=== PATIENT | female | born 1955 | race African-American/Black ===

== ENCOUNTER 2017-08-22 15:51 | Inpatient (IN) ==
[2017-08-22 17:36] LABS: Basophils % 0.2 % (0.0-0.8); Eosinophils % 0.7 % (0.00-10.9); Hematocrit 32.7 VOL% (35.7-47.0); Hemoglobin 10.9 GM/DL (12.0-16.0); Immature Granulocytes % 0.5 %; Immature Granulocytes Absolute 0.02 #; Lymphocytes # 0.8 10*3/uL (1.4-4.0); Mean Corpuscular HGB Conc 33.3 GM/DL (32-36); Mean Corpuscular Hemoglobin 28 PG (27-34); Mean Corpuscular Volume 82.4 FL (87-102); Mean Platelet Volume 12.2 FL (9.6-12.0); Monocytes # 0.4 10*3/uL (0.11-0.8); Neutrophils # 3.2 10*3/uL (1.4-7.4); Neutrophils % 72.6 % (38.7-73.9); Red Blood Count 3.97 MC/CUMM (3.8-5.5); Red Cell Distribution Width 15.9 % (9.3-17.3); White Blood Count 4.4 T/CUMM (4-12)
[2017-08-22 17:46] LABS: Platelet Count 66 T/CUMM (130-400)
[2017-08-22 17:49] LABS: Bilirubin,Total 0.5 MG/DL (0.2-1.0); Osmolality,Calculated 287.1 MOS/KG (273-304); Potassium 3.9 MMOL/L (3.5-5.1); Total Protein 6.6 G/DL (6.4-8.3)
[2017-08-22 17:50] LABS: Lactic Acid 1.1 MMOL/L (0.4-2.0)
[2017-08-22 18:52] LABS: Apearance,Urine CLEAR (Clear); Bilirubin,Urine Negative (Negative); Blood, Urine Negative (Negative); Glucose,Urine (UA) Negative (Negative); Ketones,Urine Negative (Negative); Mucus,Urine Occasional /LPF (Occasional); Nitrite,Urine Negative (Negative); Protein,Urine 100 MG/DL; RBC,Urine 1 /HPF (0-4); Squamous Epithelial Cell,Urine Occasional /HPF (0-10); Urine Color Yellow (Yellow); Urine Specific Gravity 1.011 (1.001-1.035); Urine Urobilinogen < 2.0 EU/DL (0.2-1.0); WBC,Urine 2 /HPF (0-6)
[2017-08-24 05:44] LABS: Calcium 7.8 MG/DL (8.5-10.1); Osmolality,Calculated 280.5 MOS/KG (273-304)
[2017-08-24 06:31] LABS: Basophils % 0.2 % (0.0-0.8); Hematocrit 30.8 VOL% (35.7-47.0); Hemoglobin 10.5 GM/DL (12.0-16.0); Immature Granulocytes % 0.7 %; Immature Granulocytes Absolute 0.03 #; Lymphocytes # 0.9 10*3/uL (1.4-4.0); Lymphocytes % 21.7 % (21.3-54.2); Mean Corpuscular HGB Conc 34.1 GM/DL (32-36); Mean Corpuscular Hemoglobin 28 PG (27-34); Mean Corpuscular Volume 81.9 FL (87-102); Mean Platelet Volume 12.2 FL (9.6-12.0); Monocytes # 0.4 10*3/uL (0.11-0.8); Neutrophils # 2.9 10*3/uL (1.4-7.4); Neutrophils % 68.4 % (38.7-73.9); Red Blood Count 3.76 MC/CUMM (3.8-5.5); Red Cell Distribution Width 16.3 % (9.3-17.3); White Blood Count 4.2 T/CUMM (4-12)
[2017-08-24 06:47] LABS: Platelet Count 51 T/CUMM (130-400)
[2017-08-24 07:12] LABS: Band Neutrophils 55 % (0-10); Lymphocytes 24 % (20-55); Metamyelocytes 2 %; Platelet Estimate Decreased; Segmented Neutrophils 12 % (50-85); Total Cells Counted 100
[2017-08-24 07:13] LABS: Anisocytosis Slight
[2017-08-25 09:30] LABS: Troponin I Only < 0.015 NG/ML (0.00-0.045)
[2017-08-25 09:32] LABS: Basophils % 0.5 % (0.0-0.8); Eosinophils % 0.2 % (0.00-10.9); Hematocrit 33.5 VOL% (35.7-47.0); Hemoglobin 10.9 GM/DL (12.0-16.0); Immature Granulocytes % 1.1 %; Immature Granulocytes Absolute 0.05 #; Lymphocytes # 1.4 10*3/uL (1.4-4.0); Lymphocytes % 31.3 % (21.3-54.2); Mean Corpuscular HGB Conc 32.5 GM/DL (32-36); Mean Corpuscular Hemoglobin 27 PG (27-34); Mean Corpuscular Volume 82.7 FL (87-102); Mean Platelet Volume 11.6 FL (9.6-12.0); Monocytes # 0.5 10*3/uL (0.11-0.8); Monocytes % 10.3 % (1.7-12.7); Neutrophils # 2.5 10*3/uL (1.4-7.4); Neutrophils % 56.6 % (38.7-73.9); Platelet Count 45 T/CUMM (130-400); Red Blood Count 4.05 MC/CUMM (3.8-5.5); Red Cell Distribution Width 15.9 % (9.3-17.3); White Blood Count 4.4 T/CUMM (4-12)
[2017-08-25 09:45] LABS: Alanine Aminotransferase 45 U/L (13-56); Albumin 2.7 G/DL (3.4-5.0); Alkaline Phosphatase 43 U/L (45-117); Aspartate Amino Transferase 36 U/L (0-37); Bilirubin,Total < 0.39 MG/DL (0.2-1.0); Blood Urea Nitrogen 23 MG/DL (7-18); Calcium 8.1 MG/DL (8.5-10.1); Glucose 122 MG/DL (74-106); Osmolality,Calculated 281.5 MOS/KG (273-304); Potassium 3.8 MMOL/L (3.5-5.1); Sodium 139 MMOL/L (136-145); Total Protein 6.3 G/DL (6.4-8.3)
[2017-08-25 10:15] LABS: Band Neutrophils 42 % (0-10); Lymphocytes 28 % (20-55); Metamyelocytes 2 %; Platelet Estimate Decreased; Segmented Neutrophils 18 % (50-85); Total Cells Counted 100
[2017-08-25 14:17] LABS: Apearance,Urine CLEAR (Clear); Bilirubin,Urine Negative (Negative); Blood, Urine Small mg/dL (Negative); Glucose,Urine (UA) Negative (Negative); Ketones,Urine Negative (Negative); Nitrite,Urine Negative (Negative); Protein,Urine 100 MG/DL; RBC,Urine 1 /HPF (0-4); Squamous Epithelial Cell,Urine Occasional /HPF (0-10); Urine Color Straw (Yellow); Urine Specific Gravity 1.008 (1.001-1.035); Urine Urobilinogen < 2.0 EU/DL (0.2-1.0); WBC,Urine 4 /HPF (0-6)
[2017-08-26 05:32] LABS: Basophils % 0.3 % (0.0-0.8); Eosinophils # 0.1 10*3/uL (0.0-0.87); Eosinophils % 2.5 % (0.00-10.9); Immature Granulocytes % 1.6 %; Immature Granulocytes Absolute 0.06 #; Lymphocytes # 1.4 10*3/uL (1.4-4.0); Lymphocytes % 38.5 % (21.3-54.2); Mean Corpuscular HGB Conc 33.3 GM/DL (32-36); Mean Corpuscular Hemoglobin 27 PG (27-34); Mean Corpuscular Volume 81.5 FL (87-102); Mean Platelet Volume 11.8 FL (9.6-12.0); Monocytes # 0.5 10*3/uL (0.11-0.8); Monocytes % 14.3 % (1.7-12.7); Neutrophils # 1.6 10*3/uL (1.4-7.4); Neutrophils % 42.8 % (38.7-73.9); Platelet Count 51 T/CUMM (130-400); Red Blood Count 3.68 MC/CUMM (3.8-5.5); Red Cell Distribution Width 15.8 % (9.3-17.3); White Blood Count 3.6 T/CUMM (4-12)
[2017-08-26 05:53] LABS: Platelet Estimate Decreased
[2017-08-26 06:36] LABS: Calcium 8.2 MG/DL (8.5-10.1); Osmolality,Calculated 277.7 MOS/KG (273-304)
[2017-08-27 06:31] LABS: Basophils % 0.8 % (0.0-0.8); Eosinophils # 0.1 10*3/uL (0.0-0.87); Hematocrit 32.3 VOL% (35.7-47.0); Hemoglobin 10.7 GM/DL (12.0-16.0); Immature Granulocytes % 2.5 %; Lymphocytes # 1.7 10*3/uL (1.4-4.0); Lymphocytes % 43.9 % (21.3-54.2); Mean Corpuscular HGB Conc 33.1 GM/DL (32-36); Mean Corpuscular Hemoglobin 27 PG (27-34); Mean Corpuscular Volume 81.8 FL (87-102); Mean Platelet Volume 11.3 FL (9.6-12.0); Monocytes # 0.5 10*3/uL (0.11-0.8); Monocytes % 12.1 % (1.7-12.7); Neutrophils # 1.5 10*3/uL (1.4-7.4); Neutrophils % 37.7 % (38.7-73.9); Platelet Count 67 T/CUMM (130-400); Red Blood Count 3.95 MC/CUMM (3.8-5.5); Red Cell Distribution Width 15.8 % (9.3-17.3)
[2017-08-27 07:01] LABS: Band Neutrophils 1 % (0-10); Eosinophils 9 % (0-10); Hypochromasia 1+; Lymphocytes 44 % (20-55); Ovalocytes Slight; Platelet Estimate Decreased; Segmented Neutrophils 40 % (50-85); Total Cells Counted 100
[2017-08-27 07:17] LABS: Calcium 9.1 MG/DL (8.5-10.1); Osmolality,Calculated 284.1 MOS/KG (273-304)
[2017-08-27 11:31] VITALS: BP 140/94
== END 2017-08-27 12:57 | disposition home health service (06) | DRG 194 ==
LOC: EDBD → EDUNIT# → N.ED 15:51 → SUATTDRO 21:06 → N.EDINP 21:06 → N.2E 22:08
PROVIDERS: ADMIT Internal Medicine Infectious Disease; ATTEND Internal Medicine

== ENCOUNTER 2019-12-01 05:52 | Inpatient (IN) ==
[2019-11-25 12:20] LABS: Bilirubin,Urine Negative (Negative); Blood, Urine Negative (Negative); Glucose,Urine (UA) Negative (Negative); Ketones,Urine Negative (Negative); Nitrite,Urine Negative (Negative); Protein,Urine 100 MG/DL; RBC,Urine 2 /HPF (0-4); Squamous Epithelial Cell,Urine Few /HPF (0-10); Urine Appearance Slightly Hazy (Clear); Urine Color Yellow (Yellow); Urine Specific Gravity 1.014 (1.001-1.035); Urine Urobilinogen < 2.0 EU/DL (0.2-1.0); WBC,Urine 5 /HPF (0-6)
[2019-11-25 12:21] LABS: Basophils % 0.8 % (0.0-0.8); Eosinophils # 0.3 10*3/uL (0.0-0.87); Eosinophils % 8.4 % (0.00-10.9); Hematocrit 27.2 VOL% (35.7-47.0); Hemoglobin 8.1 GM/DL (12.0-16.0); Immature Granulocytes % 0.5 %; Immature Granulocytes Absolute 0.02 #; Lymphocytes # 1.5 10*3/uL (1.4-4.0); Lymphocytes % 39.2 % (21.3-54.2); Mean Corpuscular HGB Conc 29.8 GM/DL (32-36); Mean Corpuscular Volume 78.2 FL (87-102); Monocytes % 9.9 % (1.7-12.7); Neutrophils % 41.2 % (38.7-73.9); Platelet Count 84 T/CUMM (130-400); Red Blood Count 3.48 MC/CUMM (3.8-5.5); Red Cell Distribution Width 22.3 % (9.3-17.3); White Blood Count 3.9 T/CUMM (4-12)
[2019-11-25 12:35] LABS: PT Patient Result 10.3 SECS (9.8-11.9); Partial Thromboplastin Time 25.7 SECS (23.9-33.8)
[2019-11-25 12:38] LABS: Albumin 3.2 G/DL (3.4-5.0); Bilirubin,Total 0.4 MG/DL (0.2-1.0); Calcium 9.8 MG/DL (8.5-10.1); Osmolality,Calculated 297.6 MOS/KG (273-304); Total Protein 6.7 G/DL (6.4-8.3)
[2019-11-25 12:43] LABS: Anisocytosis 1+; Hypochromasia 1+; Platelet Estimate Decreased; Poikilocytosis 1+
[2019-11-25 12:44] LABS: Ovalocytes Few; Tear Drop Cells Few
[2019-12-01] MEDS ORDERED: VANCOMYCIN INJ 1,000 MG in SODIUM CHLORIDE 0.9% 250 ML IV ONE (06:00)
[2019-12-01] MEDS ORDERED: BUPIVACAINE MPF 0.25% 30 ML VIAL ONE (06:16)
[2019-12-01] MEDS ORDERED: ACETAMINOPHEN 500 MG TABLET PO ONE (06:24)
[2019-12-01] MEDS ORDERED: GABAPENTIN 400 MG CAPSULE PO ONE (06:24)
[2019-12-01] MEDS ORDERED: DIAZEPAM 5 MG TABLET PO ONE (06:24)
[2019-12-01] MEDS ORDERED: FAMOTIDINE 20 MG TABLET PO ONE (06:24)
[2019-12-01] MEDS ORDERED: LACTATED RINGERS 1,000 ML IV SCH (06:30)
[2019-12-01] MEDS ORDERED: BACITRACIN OINT 0.9 GM PACK TOP ONE (06:40)
[2019-12-01] MEDS ORDERED: ceFAZolin 1,000 MG in SYRINGE 1 EACH IV ONE (07:00)
[2019-12-01] MEDS ORDERED: cloNIDine 0.1 MG TABLET PO PRN (07:44)
[2019-12-01] MEDS ORDERED: ALBUTEROL 2.5 MG/3 ML NEB RESP TX PRN (07:44)
[2019-12-01] MEDS ORDERED: LACTULOSE 20 GM/30 ML UDCUP PO PRN (07:44)
[2019-12-01] MEDS ORDERED: COLCHICINE 0.6 MG CAPSULE PO PRN (07:44)
[2019-12-01] MEDS ORDERED: tiZANidine 4 MG TABLET PO PRN (07:44)
[2019-12-01] MEDS ORDERED: CETIRIZINE 10 MG TABLET PO PRN (07:44)
[2019-12-01] MEDS ORDERED: MAGNESIUM HYDROXIDE SUSP 30 ML UDCUP PO PRN (07:47)
[2019-12-01] MEDS ORDERED: ZALEPLON 5 MG CAPSULE PO PRN (07:47)
[2019-12-01] MEDS ORDERED: HYDROmorphone 2 MG/1 ML VIAL IV PRN ×2 (07:47)
[2019-12-01] MEDS ORDERED: ONDANSETRON 4 MG/2 ML VIAL IV PRN ×2 (07:47→09:30)
[2019-12-01 09:25] LABS: Bacteria,Urine Occasional /HPF (Few); Bilirubin,Urine Negative (Negative); Blood, Urine Small mg/dL (Negative); Glucose,Urine (UA) Negative (Negative); Ketones,Urine Negative (Negative); Mucus,Urine Occasional /LPF (Occasional); Nitrite,Urine Negative (Negative); Protein,Urine 100 MG/DL; RBC,Urine 2 /HPF (0-4); Squamous Epithelial Cell,Urine Occasional /HPF (0-10); Urine Appearance CLEAR (Clear); Urine Color Yellow (Yellow); Urine Specific Gravity 1.013 (1.001-1.035); Urine Urobilinogen < 2.0 EU/DL (0.2-1.0); WBC,Urine 3 /HPF (0-6)
[2019-12-01] MEDS ORDERED: MEPERIDINE 25 MG/1 ML VIAL IV PRN (09:30)
[2019-12-01] MEDS ORDERED: diphenhydrAMINE 50 MG/1 ML VIAL IV PRN (09:30)
[2019-12-01] MEDS ORDERED: PROMETHAZINE INJ 25 MG in SODIUM CHLORIDE 0.9% 50 ML IV PRN (09:30)
[2019-12-01] MEDS: HYDROmorphone 2 MG/1 ML VIAL IV PRN ×4 (09:35→09:50)
[2019-12-01] MEDS ORDERED: propofoL 200 MG/20 ML VIAL IV ONE (09:39)
[2019-12-01] MEDS ORDERED: ROCURONIUM 100 MG/10 ML VIAL IV ONE (09:40)
[2019-12-01] MEDS ORDERED: GLYCOPYRROLATE 0.4 MG/2 ML VIAL ONE (09:40)
[2019-12-01] MEDS ORDERED: NEOSTIGMINE 10 MG/10 ML VIAL ONE (09:40)
[2019-12-01] MEDS ORDERED: SEVOFLURANE 1 UNIT/15 MINUTE INH ONE (09:40)
[2019-12-01] MEDS ORDERED: fentaNYL 100 MCG/2 ML VIAL ONE (09:40)
[2019-12-01] MEDS ORDERED: LIDOCAINE 2% 5 ML VIAL ONE (09:40)
[2019-12-01] MEDS ORDERED: SODIUM CHLORIDE 0.9% 100 ML IV ONE (09:40)
[2019-12-01] MEDS ORDERED: MIDAZOLAM 2 MG/2 ML VIAL ONE (09:40)
[2019-12-01] MEDS: LACTATED RINGERS 1,000 ML IV SCH ×3 (09:46→18:04)
[2019-12-01] MEDS: KETOROLAC 30 MG/1 ML VIAL IV SCH ×3 (10:01→19:50)
[2019-12-01] MEDS ORDERED: TRANEXAMIC ACID 1,000 MG/10 ML VIAL ONE (12:30)
[2019-12-01] MEDS: CHOLECALCIFEROL 1,000 UNIT TABLET PO SCH (12:50)
[2019-12-01] MEDS: ceFAZolin 2,000 MG in PREMIX 1 EACH IV SCH ×2 (12:50→19:48)
[2019-12-01] MEDS: POTASSIUM CHLORIDE 8 MEQ CAPSULE PO SCH ×2 (13:09→21:38)
[2019-12-01] MEDS: BRIMONIDINE 0.1% OPH SOLN 5 ML BOTTLE BOTH EYES SCH ×2 (13:09→21:39)
[2019-12-01] MEDS: FERROUS SULFATE 325 MG TABLET PO SCH (17:05)
[2019-12-01] MEDS ORDERED: NORTRIPTYLINE 10 MG CAPSULE PO SCH (21:00)
[2019-12-01] MEDS: DOCUSATE SODIUM 100 MG CAPSULE PO SCH (21:38)
[2019-12-01] MEDS: SIMVASTATIN 10 MG TABLET PO SCH (21:38)
[2019-12-02] MEDS: KETOROLAC 30 MG/1 ML VIAL IV SCH (01:44)
[2019-12-02] MEDS: LACTATED RINGERS 1,000 ML IV SCH ×3 (01:45→14:00)
[2019-12-02] MEDS: FONDAPARINUX 2.5 MG/0.5 ML SYRINGE SUBCUT SCH (05:13)
[2019-12-02 09:05] LABS: Calcium 8.1 MG/DL (8.5-10.1); Osmolality,Calculated 282.5 MOS/KG (273-304)
[2019-12-02 09:53] LABS: Basophils % 0.2 % (0.0-0.8); Eosinophils # 0.2 10*3/uL (0.0-0.87); Eosinophils % 3.7 % (0.00-10.9); Hematocrit 20.1 VOL% (35.7-47.0); Immature Granulocytes % 0.4 %; Immature Granulocytes Absolute 0.02 #; Lymphocytes # 1.3 10*3/uL (1.4-4.0); Lymphocytes % 24.8 % (21.3-54.2); Mean Corpuscular HGB Conc 29.4 GM/DL (32-36); Mean Corpuscular Volume 79.1 FL (87-102); Monocytes % 5.7 % (1.7-12.7); Neutrophils % 65.2 % (38.7-73.9); Platelet Count 49 T/CUMM (130-400); Red Blood Count 2.54 MC/CUMM (3.8-5.5); Red Cell Distribution Width 21.8 % (9.3-17.3); White Blood Count 5.1 T/CUMM (4-12)
[2019-12-02] MEDS: BRIMONIDINE 0.1% OPH SOLN 5 ML BOTTLE BOTH EYES SCH ×2 (09:55→21:56)
[2019-12-02] MEDS: POTASSIUM CHLORIDE 8 MEQ CAPSULE PO SCH ×2 (09:56→21:56)
[2019-12-02] MEDS: DOCUSATE SODIUM 100 MG CAPSULE PO SCH ×2 (09:56→21:56)
[2019-12-02 09:57] LABS: Hemoglobin 5.9 GM/DL (12.0-16.0)
[2019-12-02] MEDS: amLODIPine 5 MG TABLET PO SCH (09:57)
[2019-12-02] MEDS: CHOLECALCIFEROL 1,000 UNIT TABLET PO SCH (09:57)
[2019-12-02] MEDS ORDERED: SODIUM CHLORIDE 0.9% 1,000 ML IV PRN (10:13)
[2019-12-02] MEDS ORDERED: FUROSEMIDE 20 MG/2 ML VIAL IV PRN ×2 (10:13→18:41)
[2019-12-02 10:25] LABS: Hypochromasia 2+; Microcytosis 1+; Ovalocytes Slight; Platelet Estimate Decreased
[2019-12-02] MEDS: FERROUS SULFATE 325 MG TABLET PO SCH ×2 (16:50→16:52)
[2019-12-02] MEDS: hydroCHLOROthiazide 12.5 MG CAPSULE PO SCH (16:50)
[2019-12-02] MEDS ORDERED: NORTRIPTYLINE 10 MG CAPSULE PO SCH (21:00)
[2019-12-02] MEDS: SIMVASTATIN 10 MG TABLET PO SCH (21:57)
[2019-12-03] MEDS: LACTATED RINGERS 1,000 ML IV SCH (02:29)
[2019-12-03] MEDS: FONDAPARINUX 2.5 MG/0.5 ML SYRINGE SUBCUT SCH (05:24)
[2019-12-03 06:55] LABS: Basophils % 0.5 % (0.0-0.8); Eosinophils # 0.3 10*3/uL (0.0-0.87); Eosinophils % 4.5 % (0.00-10.9); Hematocrit 25.6 VOL% (35.7-47.0); Immature Granulocytes Absolute 0.06 #; Lymphocytes # 1.5 10*3/uL (1.4-4.0); Lymphocytes % 23.9 % (21.3-54.2); Mean Corpuscular Volume 80.5 FL (87-102); NRBC # 0.02 10*3/uL; Neutrophils % 60.1 % (38.7-73.9); Red Cell Distribution Width 20.1 % (9.3-17.3); White Blood Count 6.2 T/CUMM (4-12)
[2019-12-03 07:11] LABS: Red Blood Count 3.18 MC/CUMM (3.8-5.5)
[2019-12-03 07:12] LABS: Hemoglobin 8.2 GM/DL (12.0-16.0); Platelet Count 51 T/CUMM (130-400)
[2019-12-03 07:23] LABS: Hypochromasia 1+; Microcytosis 1+; Ovalocytes Slight; Platelet Estimate Decreased
[2019-12-03 07:47] LABS: Hematocrit 25.6 VOL% (35.7-47.0); Hemoglobin 8.2 GM/DL (12.0-16.0)
[2019-12-03] MEDS: DOCUSATE SODIUM 100 MG CAPSULE PO SCH (08:37)
[2019-12-03] MEDS: hydroCHLOROthiazide 12.5 MG CAPSULE PO SCH ×2 (08:37→16:00)
[2019-12-03] MEDS: POTASSIUM CHLORIDE 8 MEQ CAPSULE PO SCH (08:37)
[2019-12-03] MEDS: amLODIPine 5 MG TABLET PO SCH (08:38)
[2019-12-03] MEDS: CHOLECALCIFEROL 1,000 UNIT TABLET PO SCH (08:38)
[2019-12-03] MEDS: BRIMONIDINE 0.1% OPH SOLN 5 ML BOTTLE BOTH EYES SCH (08:45)
[2019-12-03 09:47] LABS: Osmolality,Calculated 290.1 MOS/KG (273-304)
[2019-12-03 11:37] VITALS: BP 122/69
== END 2019-12-03 16:15 | disposition home health service (06) | DRG 470 ==
LOC: N.OR 05:52 → N.SDSINP 05:54 → EDSTATUS 07:30 → N.SDSINP 07:48 → N.3E 09:59
PROVIDERS: ADMIT Orthopaedic Surgery; ATTEND Orthopaedic Surgery

== ENCOUNTER 2021-09-11 10:52 | Inpatient (IN) ==
[2021-09-11] MEDS ORDERED: ONDANSETRON 4 MG/2 ML VIAL IV ONE (11:28)
[2021-09-11 12:06] LABS: INR 1.1; PT Patient Result 11.7 SECS (10.1-12.1)
[2021-09-11 12:14] LABS: Albumin 1.9 G/DL (3.4-5.0); Bilirubin,Total 0.4 MG/DL (0.20-1.00); Calcium 8.2 MG/DL (8.5-10.1); Osmolality,Calculated 302.1 MOS/KG (273-304); Potassium 4.3 MMOL/L (3.5-5.1); Total Protein 5.8 G/DL (6.4-8.2)
[2021-09-11] MEDS ORDERED: SODIUM CHLORIDE 0.9% 500 ML IV STA (12:18)
[2021-09-11] MEDS ORDERED: PIPERACILLIN/TAZOBACTAM 3,375 MG in SODIUM CHLORIDE 0.9% 100 ML IV STA (12:19)
[2021-09-11] MEDS ORDERED: VANCOMYCIN INJ 1,000 MG in SODIUM CHLORIDE 0.9% 250 ML IV STA (12:19)
[2021-09-11 13:57] LABS: Basophils % 0.1 % (0.0-0.8); Eosinophils # 0.3 10*3/uL (0.0-0.87); Eosinophils % 2.2 % (0.00-10.9); Immature Granulocytes % 5.9 %; Immature Granulocytes Absolute 0.68 #; Lymphocytes # 1.7 10*3/uL (1.4-4.0); Lymphocytes % 14.9 % (21.3-54.2); Mean Corpuscular HGB Conc 29.6 GM/DL (32-36); Mean Corpuscular Volume 75.5 FL (87-102); Monocytes # 1.4 10*3/uL (0.11-0.8); Monocytes % 12.6 % (1.7-12.7); NRBC # 0.08 10*3/uL; Neutrophils % 64.3 % (38.7-73.9); Platelet Count 74 T/CUMM (130-400); Red Blood Count 1.43 MC/CUMM (3.8-5.5); Red Cell Distribution Width 23.5 % (9.3-17.3); White Blood Count 11.4 T/CUMM (4-12)
[2021-09-11 13:59] LABS: Hemoglobin 3.2 GM/DL (12.0-16.0)
[2021-09-11 14:00] LABS: Hematocrit 10.8 VOL% (35.7-47.0)
[2021-09-11] MEDS ORDERED: SODIUM CHLORIDE 0.9% 1,000 ML IV PRN ×3 (14:02→14:34)
[2021-09-11] MEDS ORDERED: GLUCAGON 1 MG VIAL IM PRN (14:26)
[2021-09-11] MEDS ORDERED: ONDANSETRON 4 MG/2 ML VIAL IV PRN (14:27)
[2021-09-11] MEDS ORDERED: MORPHINE 2 MG/1 ML SYRINGE IV PRN (14:27)
[2021-09-11] MEDS ORDERED: hydrALAZINE 20 MG/1 ML VIAL IV PRN (14:27)
[2021-09-11] MEDS ORDERED: ACETAMINOPHEN 325 MG TABLET PO PRN (14:27)
[2021-09-11] MEDS ORDERED: HEPARIN 5,000 UNIT/1 ML VIAL SUBCUT SCH (14:30)
[2021-09-11] MEDS ORDERED: DEXTROSE 10% 250 ML BAG IV PRN (14:51)
[2021-09-11] MEDS ORDERED: LACTULOSE 20 GM/30 ML UDCUP PO PRN (14:57)
[2021-09-11] MEDS ORDERED: AZITHROMYCIN INJ 500 MG in SODIUM CHLORIDE 0.9% 250 ML IV ONE (15:08)
[2021-09-11 15:18] LABS: Anisocytosis 1+; Band Neutrophils 1 % (0-10); Hypochromia 2+; Lymphocytes 18 % (20-55); Metamyelocytes 1 %; Microcytosis 1+; Nucleated Red Blood Cells 1 (0-5); Platelet Estimate Decreased; Total Cells Counted 100
[2021-09-11 15:19] LABS: Macrocytosis 1+; Target Cells 1+; Tear Drop Cells 1+
[2021-09-11] MEDS: SODIUM CHLORIDE 0.9% 1,000 ML IV SCH (15:38)
[2021-09-11 16:42] LABS: % Iron Saturation 19.7 % (18-50); Ferritin 184.4 ng/mL (8-252)
[2021-09-11] MEDS ORDERED: LOVASTATIN 10 MG PO SCH (21:00)
[2021-09-11] MEDS: BRIMONIDINE 0.1% OPH SOLN 5 ML BOTTLE BOTH EYES SCH (22:42)
[2021-09-11] MEDS: DOCUSATE SODIUM 100 MG CAPSULE PO SCH (22:43)
[2021-09-11] MEDS: CALCIUM (CARBONATE)/VITAMIN D 600 MG-400 UNIT TABLET PO SCH (22:43)
[2021-09-11] MEDS: FERROUS SULFATE 325 MG TABLET PO SCH (22:43)
[2021-09-11] MEDS: NORTRIPTYLINE 10 MG PO SCH (22:44)
[2021-09-12 02:16] LABS: Basophils % 0.3 % (0.0-0.8); Eosinophils # 0.2 10*3/uL (0.0-0.87); Eosinophils % 1.6 % (0.00-10.9); Immature Granulocytes Absolute 0.89 #; Lymphocytes # 1.8 10*3/uL (1.4-4.0); Lymphocytes % 13.9 % (21.3-54.2); Mean Corpuscular HGB Conc 31.8 GM/DL (32-36); Mean Corpuscular Volume 80.6 FL (87-102); Monocytes # 1.6 10*3/uL (0.11-0.8); Monocytes % 12.3 % (1.7-12.7); NRBC # 0.07 10*3/uL; Neutrophils % 64.9 % (38.7-73.9); Platelet Count 84 T/CUMM (130-400); Red Blood Count 2.22 MC/CUMM (3.8-5.5); Red Cell Distribution Width 21.6 % (9.3-17.3); White Blood Count 12.7 T/CUMM (4-12)
[2021-09-12 02:22] LABS: Hematocrit 17.9 VOL% (35.7-47.0); Hemoglobin 5.7 GM/DL (12.0-16.0)
[2021-09-12 02:37] LABS: Calcium 8.5 MG/DL (8.5-10.1); Osmolality,Calculated 297.4 MOS/KG (273-304); Potassium 4.9 MMOL/L (3.5-5.1)
[2021-09-12] MEDS: PIPERACILLIN/TAZOBACTAM 3,375 MG in SODIUM CHLORIDE 0.9% 100 ML IV SCH ×2 (02:43→22:42)
[2021-09-12 02:47] LABS: Eosinophils 4 % (0-10); Hypochromia 2+; Lymphocytes 10 % (20-55); Nucleated Red Blood Cells 1 (0-5); Platelet Estimate Decreased; Total Cells Counted 100
[2021-09-12 02:48] LABS: Microcytosis 2+; Polychromasia 1+
[2021-09-12 02:49] LABS: Target Cells Few
[2021-09-12 07:20] LABS: Bilirubin,Urine Negative (Negative); Blood, Urine Negative (Negative); Glucose,Urine (UA) Negative (Negative); Ketones,Urine Negative (Negative); Mucus,Urine Occasional /LPF (Occasional); Nitrite,Urine Negative (Negative); Protein,Urine 100 mg/dL (Negative); RBC,Urine 7 /HPF (0-4); Squamous Epithelial Cell,Urine Few /HPF (0-10); Urine Appearance Clear (Clear); Urine Color Yellow (Yellow); Urine Urobilinogen 0.2 eU/dL (<2.0)
[2021-09-12] MEDS ORDERED: SODIUM CHLORIDE 0.9% 1,000 ML IV PRN (07:29)
[2021-09-12] MEDS: amLODIPine 5 MG TABLET PO SCH (08:28)
[2021-09-12] MEDS: DOCUSATE SODIUM 100 MG CAPSULE PO SCH ×2 (08:28→22:46)
[2021-09-12] MEDS: PANTOPRAZOLE 40 MG TABLET PO SCH (08:29)
[2021-09-12] MEDS: BRIMONIDINE 0.1% OPH SOLN 5 ML BOTTLE BOTH EYES SCH ×2 (08:29→22:47)
[2021-09-12] MEDS ORDERED: BUPIVACAINE MPF 0.25% 10 ML VIAL ONE (09:24)
[2021-09-12] MEDS ORDERED: LIDOCAINE 1%/EPI INJ 20 ML VIAL ONE (09:24)
[2021-09-12] MEDS ORDERED: ONDANSETRON 4 MG/2 ML VIAL ONE ×2 (09:37→10:04)
[2021-09-12] MEDS ORDERED: SEVOFLURANE 1 UNIT/15 MINUTE INH ONE (09:37)
[2021-09-12] MEDS ORDERED: LIDOCAINE 2% 5 ML VIAL ONE (09:37)
[2021-09-12] MEDS ORDERED: fentaNYL 100 MCG/2 ML VIAL ONE (09:37)
[2021-09-12] MEDS ORDERED: ETOMIDATE 40 MG/20 ML VIAL IV ONE (09:37)
[2021-09-12] MEDS ORDERED: MIDAZOLAM 2 MG/2 ML VIAL ONE (09:37)
[2021-09-12] MEDS ORDERED: PHENYLEPHRINE 1 MG/10 ML SYRINGE IV ONE (09:56)
[2021-09-12] MEDS ORDERED: propofoL 200 MG/20 ML VIAL IV ONE (10:12)
[2021-09-12] MEDS ORDERED: ONDANSETRON 4 MG/2 ML VIAL IV PRN (10:47)
[2021-09-12] MEDS: HYDROmorphone 1 MG/1 ML SYRINGE IV PRN ×2 (10:55→11:08)
[2021-09-12] MEDS: SODIUM CHLORIDE 0.9% 1,000 ML IV SCH ×2 (12:40→17:01)
[2021-09-12] MEDS: CETIRIZINE 10 MG TABLET PO PRN (13:00)
[2021-09-12] MEDS ORDERED: AZITHROMYCIN INJ 250 MG in SODIUM CHLORIDE 0.9% 250 ML IV SCH (16:00)
[2021-09-12] MEDS: FERROUS SULFATE 325 MG TABLET PO SCH (18:20)
[2021-09-12 22:02] LABS: Hematocrit 23.9 VOL% (35.7-47.0); Hemoglobin 7.9 GM/DL (12.0-16.0)
[2021-09-12] MEDS: SIMVASTATIN 10 MG TABLET PO SCH (22:46)
[2021-09-12] MEDS: CALCIUM (CARBONATE)/VITAMIN D 600 MG-400 UNIT TABLET PO SCH (22:46)
[2021-09-12] MEDS: NORTRIPTYLINE 10 MG PO SCH (22:47)
[2021-09-13] MEDS: HYDROmorphone 1 MG/1 ML SYRINGE IV PRN ×5 (04:43→21:55)
[2021-09-13 06:16] LABS: Basophils % 0.4 % (0.0-0.8); Eosinophils # 0.3 10*3/uL (0.0-0.87); Eosinophils % 2.4 % (0.00-10.9); Hematocrit 24.3 VOL% (35.7-47.0); Hemoglobin 7.9 GM/DL (12.0-16.0); Immature Granulocytes % 4.1 %; Immature Granulocytes Absolute 0.45 #; Lymphocytes # 1.8 10*3/uL (1.4-4.0); Lymphocytes % 16.7 % (21.3-54.2); Mean Corpuscular HGB Conc 32.5 GM/DL (32-36); Mean Corpuscular Volume 83.2 FL (87-102); Mean Platelet Volume 11.6 FL (9.6-12.0); Monocytes # 1.1 10*3/uL (0.11-0.8); Monocytes % 9.7 % (1.7-12.7); NRBC # 0.03 10*3/uL; Neutrophils % 66.7 % (38.7-73.9); Platelet Count 71 T/CUMM (130-400); Red Blood Count 2.92 MC/CUMM (3.8-5.5); Red Cell Distribution Width 19.3 % (9.3-17.3); White Blood Count 11.1 T/CUMM (4-12)
[2021-09-13] MEDS: SODIUM CHLORIDE 0.9% 1,000 ML IV SCH (06:22)
[2021-09-13 06:29] LABS: Phosphorous 5.3 MG/DL (2.5-4.9); Uric Acid 9.6 MG/DL (2.6-6.0)
[2021-09-13 06:32] LABS: Parathyroid Hormone Intact 278.6 PG/ML (18.4-80.1)
[2021-09-13 06:38] LABS: Calcium 8.2 MG/DL (8.5-10.1); Osmolality,Calculated 291.5 MOS/KG (273-304); Potassium 4.7 MMOL/L (3.5-5.1)
[2021-09-13 07:43] LABS: Protein/Creatinine Ratio,Urine 1.1 RATIO
[2021-09-13] MEDS: AZITHROMYCIN 250 MG TABLET PO SCH (09:13)
[2021-09-13] MEDS: DOCUSATE SODIUM 100 MG CAPSULE PO SCH ×2 (09:13→21:44)
[2021-09-13] MEDS: BRIMONIDINE 0.1% OPH SOLN 5 ML BOTTLE BOTH EYES SCH ×2 (09:13→21:44)
[2021-09-13] MEDS: PANTOPRAZOLE 40 MG TABLET PO SCH (09:13)
[2021-09-13] MEDS: PIPERACILLIN/TAZOBACTAM 3,375 MG in SODIUM CHLORIDE 0.9% 100 ML IV SCH ×2 (09:13→21:44)
[2021-09-13] MEDS: amLODIPine 5 MG TABLET PO SCH (09:13)
[2021-09-13] MEDS: FERROUS SULFATE 325 MG TABLET PO SCH (18:27)
[2021-09-13] MEDS: CALCIUM (CARBONATE)/VITAMIN D 600 MG-400 UNIT TABLET PO SCH (21:44)
[2021-09-13] MEDS: SIMVASTATIN 10 MG TABLET PO SCH (21:44)
[2021-09-13] MEDS: CETIRIZINE 10 MG TABLET PO PRN (21:45)
[2021-09-13] MEDS: NORTRIPTYLINE 10 MG PO SCH (21:50)
[2021-09-14 03:43] LABS: Arterial Base Excess iSTAT -7 MMOL/L (-2.5-2.5); Arterial Bicarbonate iSTAT 17.8 MMOL/L (20-26); Arterial O2 Saturation iSTAT 92 % (95-100); Arterial PCO2 iSTAT 34 MM HG (35-48); Arterial PO2 iSTAT 67 MM HG (80-95); Arterial Total CO2 iSTAT 19 MMO/L (23-27); Arterial pH iSTAT 7.327 (7.35-7.45)
[2021-09-14] MEDS: HYDROmorphone 1 MG/1 ML SYRINGE IV PRN ×5 (05:14→20:20)
[2021-09-14 06:46] LABS: Basophils % 0.5 % (0.0-0.8); Eosinophils # 0.3 10*3/uL (0.0-0.87); Eosinophils % 3.4 % (0.00-10.9); Hemoglobin 7.6 GM/DL (12.0-16.0); Immature Granulocytes % 4.6 %; Immature Granulocytes Absolute 0.39 #; Lymphocytes # 1.3 10*3/uL (1.4-4.0); Mean Corpuscular HGB Conc 31.7 GM/DL (32-36); Mean Platelet Volume 11.3 FL (9.6-12.0); Monocytes # 0.7 10*3/uL (0.11-0.8); Monocytes % 7.8 % (1.7-12.7); NRBC # 0.04 10*3/uL; Neutrophils % 68.7 % (38.7-73.9); Platelet Count 66 T/CUMM (130-400); Red Blood Count 2.79 MC/CUMM (3.8-5.5); Red Cell Distribution Width 19.4 % (9.3-17.3); White Blood Count 8.5 T/CUMM (4-12)
[2021-09-14 06:57] LABS: Calcium 8.1 MG/DL (8.5-10.1); Osmolality,Calculated 295.3 MOS/KG (273-304)
[2021-09-14 07:10] LABS: Anisocytosis 1+; Burr Cells Few; Ovalocytes Few; Platelet Estimate Decreased; Tear Drop Cells Few
[2021-09-14] MEDS ORDERED: SODIUM BICARBONATE 650 MG TABLET PO SCH (09:00)
[2021-09-14] MEDS: SODIUM CHLORIDE 0.9% 1,000 ML IV SCH ×2 (09:41→12:08)
[2021-09-14] MEDS: PANTOPRAZOLE 40 MG TABLET PO SCH (09:42)
[2021-09-14] MEDS: BRIMONIDINE 0.1% OPH SOLN 5 ML BOTTLE BOTH EYES SCH ×2 (09:42→20:23)
[2021-09-14] MEDS: AZITHROMYCIN 250 MG TABLET PO SCH (09:42)
[2021-09-14] MEDS: DOCUSATE SODIUM 100 MG CAPSULE PO SCH ×2 (09:42→20:22)
[2021-09-14] MEDS: amLODIPine 5 MG TABLET PO SCH (09:42)
[2021-09-14] MEDS: PIPERACILLIN/TAZOBACTAM 3,375 MG in SODIUM CHLORIDE 0.9% 100 ML IV SCH ×2 (09:43→20:19)
[2021-09-14] MEDS: FERROUS SULFATE 325 MG TABLET PO SCH (18:16)
[2021-09-14] MEDS: cloNIDine 0.1 MG TABLET PO PRN (20:21)
[2021-09-14] MEDS: tiZANidine 4 MG TABLET PO PRN (20:22)
[2021-09-14] MEDS: ZALEPLON 5 MG CAPSULE PO PRN (20:22)
[2021-09-14] MEDS: SODIUM BICARBONATE 650 MG TABLET PO SCH (20:22)
[2021-09-14] MEDS: SIMVASTATIN 10 MG TABLET PO SCH (20:22)
[2021-09-14] MEDS: CALCIUM (CARBONATE)/VITAMIN D 600 MG-400 UNIT TABLET PO SCH (20:22)
[2021-09-15] MEDS: SODIUM CHLORIDE 0.9% 1,000 ML IV SCH (00:51)
[2021-09-15 08:37] LABS: Basophils % 0.4 % (0.0-0.8); Eosinophils # 0.2 10*3/uL (0.0-0.87); Eosinophils % 3.2 % (0.00-10.9); Hematocrit 22.4 VOL% (35.7-47.0); Hemoglobin 6.9 GM/DL (12.0-16.0); Immature Granulocytes % 4.2 %; Immature Granulocytes Absolute 0.29 #; Lymphocytes # 1.3 10*3/uL (1.4-4.0); Lymphocytes % 18.6 % (21.3-54.2); Mean Corpuscular HGB Conc 30.8 GM/DL (32-36); Mean Corpuscular Volume 86.8 FL (87-102); Monocytes # 0.5 10*3/uL (0.11-0.8); Monocytes % 6.8 % (1.7-12.7); NRBC # 0.02 10*3/uL; Neutrophils % 66.8 % (38.7-73.9); Platelet Count 56 T/CUMM (130-400); Red Blood Count 2.58 MC/CUMM (3.8-5.5); Red Cell Distribution Width 19.8 % (9.3-17.3); White Blood Count 6.9 T/CUMM (4-12)
[2021-09-15 08:52] LABS: Osmolality,Calculated 295.1 MOS/KG (273-304); Potassium 4.9 MMOL/L (3.5-5.1)
[2021-09-15] MEDS ORDERED: SODIUM CHLORIDE 0.9% 1,000 ML IV PRN (08:55)
[2021-09-15] MEDS: BRIMONIDINE 0.1% OPH SOLN 5 ML BOTTLE BOTH EYES SCH ×2 (09:17→22:21)
[2021-09-15] MEDS: PIPERACILLIN/TAZOBACTAM 3,375 MG in SODIUM CHLORIDE 0.9% 100 ML IV SCH ×2 (09:18→22:19)
[2021-09-15] MEDS: amLODIPine 5 MG TABLET PO SCH (09:19)
[2021-09-15] MEDS: DOCUSATE SODIUM 100 MG CAPSULE PO SCH ×2 (09:19→22:19)
[2021-09-15] MEDS: SODIUM BICARBONATE 650 MG TABLET PO SCH ×3 (09:19→22:19)
[2021-09-15 09:20] LABS: Hypochromia 1+; Microcytosis 1+
[2021-09-15] MEDS: PANTOPRAZOLE 40 MG TABLET PO SCH (09:20)
[2021-09-15] MEDS: AZITHROMYCIN 250 MG TABLET PO SCH (09:20)
[2021-09-15 09:21] LABS: Platelet Estimate Decreased
[2021-09-15] MEDS: HYDROmorphone 1 MG/1 ML SYRINGE IV PRN ×2 (09:23→22:21)
[2021-09-15] MEDS ORDERED: LIDOCAINE 1%/EPI INJ 20 ML VIAL ONE (10:50)
[2021-09-15] MEDS ORDERED: BUPIVACAINE MPF 0.25% 10 ML VIAL ONE (10:50)
[2021-09-15] MEDS ORDERED: propofoL 200 MG/20 ML VIAL IV ONE (11:57)
[2021-09-15] MEDS ORDERED: fentaNYL 100 MCG/2 ML VIAL ONE (11:57)
[2021-09-15] MEDS ORDERED: LIDOCAINE 2% 5 ML VIAL ONE (11:57)
[2021-09-15] MEDS ORDERED: MIDAZOLAM 2 MG/2 ML VIAL ONE (11:57)
[2021-09-15] MEDS ORDERED: KETAMINE 500 MG/10 ML VIAL ONE (12:04)
[2021-09-15] MEDS ORDERED: SEVOFLURANE 1 UNIT/15 MINUTE INH ONE (12:20)
[2021-09-15] MEDS: ZALEPLON 5 MG CAPSULE PO PRN (22:18)
[2021-09-15] MEDS: SIMVASTATIN 10 MG TABLET PO SCH (22:19)
[2021-09-15] MEDS: tiZANidine 4 MG TABLET PO PRN (22:19)
[2021-09-15] MEDS: FERROUS SULFATE 325 MG TABLET PO SCH (22:19)
[2021-09-15] MEDS: CALCIUM (CARBONATE)/VITAMIN D 600 MG-400 UNIT TABLET PO SCH (22:22)
[2021-09-16] MEDS: SODIUM CHLORIDE 0.9% 1,000 ML IV SCH ×3 (01:07→16:21)
[2021-09-16] MEDS: HYDROmorphone 1 MG/1 ML SYRINGE IV PRN ×2 (09:17→16:23)
[2021-09-16] MEDS: DOCUSATE SODIUM 100 MG CAPSULE PO SCH ×2 (09:17→20:55)
[2021-09-16] MEDS: COLCHICINE 0.6 MG CAPSULE PO PRN (09:17)
[2021-09-16] MEDS: cloNIDine 0.1 MG TABLET PO PRN (09:17)
[2021-09-16] MEDS: amLODIPine 5 MG TABLET PO SCH (09:18)
[2021-09-16] MEDS: BRIMONIDINE 0.1% OPH SOLN 5 ML BOTTLE BOTH EYES SCH ×2 (09:18→20:56)
[2021-09-16] MEDS: PIPERACILLIN/TAZOBACTAM 3,375 MG in SODIUM CHLORIDE 0.9% 100 ML IV SCH ×2 (09:26→20:56)
[2021-09-16] MEDS: PANTOPRAZOLE 40 MG TABLET PO SCH (09:32)
[2021-09-16] MEDS: SODIUM BICARBONATE 650 MG TABLET PO SCH ×3 (09:32→20:55)
[2021-09-16 13:30] LABS: Basophils % 0.5 % (0.0-0.8); Eosinophils # 0.2 10*3/uL (0.0-0.87); Eosinophils % 3.1 % (0.00-10.9); Hematocrit 28.6 VOL% (35.7-47.0); Hemoglobin 9.1 GM/DL (12.0-16.0); Immature Granulocytes % 1.1 %; Immature Granulocytes Absolute 0.07 #; Lymphocytes # 1.1 10*3/uL (1.4-4.0); Mean Corpuscular HGB Conc 31.8 GM/DL (32-36); Mean Corpuscular Volume 85.4 FL (87-102); Monocytes # 0.7 10*3/uL (0.11-0.8); Monocytes % 10.8 % (1.7-12.7); NRBC # 0.02 10*3/uL; Neutrophils % 68.5 % (38.7-73.9); Platelet Count 58 T/CUMM (130-400); Red Blood Count 3.35 MC/CUMM (3.8-5.5); Red Cell Distribution Width 17.8 % (9.3-17.3); White Blood Count 6.6 T/CUMM (4-12)
[2021-09-16 13:52] LABS: Calcium 7.8 MG/DL (8.5-10.1); Osmolality,Calculated 301.8 MOS/KG (273-304); Potassium 4.7 MMOL/L (3.5-5.1)
[2021-09-16 14:20] LABS: Platelet Estimate Decreased
[2021-09-16] MEDS: CALCIUM (CARBONATE)/VITAMIN D 600 MG-400 UNIT TABLET PO SCH (20:55)
[2021-09-16] MEDS: tiZANidine 4 MG TABLET PO PRN (20:55)
[2021-09-16] MEDS: SIMVASTATIN 10 MG TABLET PO SCH (20:55)
[2021-09-16] MEDS: FERROUS SULFATE 325 MG TABLET PO SCH (20:55)
[2021-09-16] MEDS: ZALEPLON 5 MG CAPSULE PO PRN (20:55)
[2021-09-17] MEDS: HYDROmorphone 1 MG/1 ML SYRINGE IV PRN ×4 (03:21→18:42)
[2021-09-17] MEDS: SODIUM CHLORIDE 0.9% 1,000 ML IV SCH (03:21)
[2021-09-17] MEDS: PIPERACILLIN/TAZOBACTAM 3,375 MG in SODIUM CHLORIDE 0.9% 100 ML IV SCH ×2 (09:09→20:11)
[2021-09-17] MEDS: BRIMONIDINE 0.1% OPH SOLN 5 ML BOTTLE BOTH EYES SCH ×2 (09:09→20:11)
[2021-09-17] MEDS: DOCUSATE SODIUM 100 MG CAPSULE PO SCH ×2 (09:10→20:10)
[2021-09-17] MEDS: PANTOPRAZOLE 40 MG TABLET PO SCH (09:10)
[2021-09-17] MEDS: SODIUM BICARBONATE 650 MG TABLET PO SCH ×3 (09:10→20:09)
[2021-09-17] MEDS: COLCHICINE 0.6 MG CAPSULE PO PRN (09:10)
[2021-09-17] MEDS: cloNIDine 0.1 MG TABLET PO PRN (09:10)
[2021-09-17] MEDS: amLODIPine 5 MG TABLET PO SCH (09:11)
[2021-09-17] MEDS: CETIRIZINE 10 MG TABLET PO PRN (09:11)
[2021-09-17 12:56] LABS: Basophils % 0.3 % (0.0-0.8); Eosinophils # 0.2 10*3/uL (0.0-0.87); Eosinophils % 3.1 % (0.00-10.9); Hematocrit 30.4 VOL% (35.7-47.0); Hemoglobin 9.6 GM/DL (12.0-16.0); Immature Granulocytes % 0.9 %; Immature Granulocytes Absolute 0.06 #; Lymphocytes # 1.3 10*3/uL (1.4-4.0); Lymphocytes % 19.3 % (21.3-54.2); Mean Corpuscular HGB Conc 31.6 GM/DL (32-36); Mean Corpuscular Volume 87.1 FL (87-102); Monocytes # 0.7 10*3/uL (0.11-0.8); Monocytes % 10.7 % (1.7-12.7); Neutrophils % 65.7 % (38.7-73.9); Platelet Count 52 T/CUMM (130-400); Red Blood Count 3.49 MC/CUMM (3.8-5.5); Red Cell Distribution Width 17.6 % (9.3-17.3); White Blood Count 6.5 T/CUMM (4-12)
[2021-09-17 13:23] LABS: Calcium 8.4 MG/DL (8.5-10.1); Osmolality,Calculated 303.6 MOS/KG (273-304)
[2021-09-17] MEDS: CALCIUM (CARBONATE)/VITAMIN D 600 MG-400 UNIT TABLET PO SCH (20:09)
[2021-09-17] MEDS: SIMVASTATIN 10 MG TABLET PO SCH (20:09)
[2021-09-17] MEDS: ZALEPLON 5 MG CAPSULE PO PRN (20:09)
[2021-09-17] MEDS: tiZANidine 4 MG TABLET PO PRN (20:10)
[2021-09-17] MEDS: FERROUS SULFATE 325 MG TABLET PO SCH (20:10)
[2021-09-18 06:03] LABS: Basophils % 0.5 % (0.0-0.8); Eosinophils # 0.2 10*3/uL (0.0-0.87); Eosinophils % 3.3 % (0.00-10.9); Hematocrit 28.2 VOL% (35.7-47.0); Hemoglobin 8.9 GM/DL (12.0-16.0); Immature Granulocytes % 0.5 %; Immature Granulocytes Absolute 0.03 #; Lymphocytes # 1.3 10*3/uL (1.4-4.0); Lymphocytes % 22.9 % (21.3-54.2); Mean Corpuscular HGB Conc 31.6 GM/DL (32-36); Mean Corpuscular Volume 86.2 FL (87-102); Monocytes # 0.6 10*3/uL (0.11-0.8); Monocytes % 10.2 % (1.7-12.7); Neutrophils % 62.6 % (38.7-73.9); Platelet Count 42 T/CUMM (130-400); Red Blood Count 3.27 MC/CUMM (3.8-5.5); Red Cell Distribution Width 17.2 % (9.3-17.3); White Blood Count 5.8 T/CUMM (4-12)
[2021-09-18 06:22] LABS: Platelet Estimate Decreased
[2021-09-18 06:23] LABS: Hypochromia Slight; Microcytosis Slight
[2021-09-18 06:27] LABS: Osmolality,Calculated 302.6 MOS/KG (273-304); Potassium 4.8 MMOL/L (3.5-5.1)
[2021-09-18] MEDS: PIPERACILLIN/TAZOBACTAM 3,375 MG in SODIUM CHLORIDE 0.9% 100 ML IV SCH ×2 (09:07→21:27)
[2021-09-18] MEDS: PANTOPRAZOLE 40 MG TABLET PO SCH (09:08)
[2021-09-18] MEDS: DOCUSATE SODIUM 100 MG CAPSULE PO SCH ×2 (09:08→21:24)
[2021-09-18] MEDS: SODIUM BICARBONATE 650 MG TABLET PO SCH ×3 (09:08→21:24)
[2021-09-18] MEDS: amLODIPine 5 MG TABLET PO SCH (09:08)
[2021-09-18] MEDS: HYDROmorphone 1 MG/1 ML SYRINGE IV PRN (09:09)
[2021-09-18] MEDS: BRIMONIDINE 0.1% OPH SOLN 5 ML BOTTLE BOTH EYES SCH ×2 (09:10→21:25)
[2021-09-18] MEDS: FERROUS SULFATE 325 MG TABLET PO SCH (19:24)
[2021-09-18] MEDS: ZALEPLON 5 MG CAPSULE PO PRN (21:23)
[2021-09-18] MEDS: tiZANidine 4 MG TABLET PO PRN (21:23)
[2021-09-18] MEDS: SIMVASTATIN 10 MG TABLET PO SCH (21:23)
[2021-09-18] MEDS: CALCIUM (CARBONATE)/VITAMIN D 600 MG-400 UNIT TABLET PO SCH (21:24)
[2021-09-19 05:22] LABS: Basophils % 0.6 % (0.0-0.8); Eosinophils # 0.2 10*3/uL (0.0-0.87); Eosinophils % 2.7 % (0.00-10.9); Hemoglobin 8.5 GM/DL (12.0-16.0); Immature Granulocytes % 0.3 %; Immature Granulocytes Absolute 0.02 #; Lymphocytes # 1.3 10*3/uL (1.4-4.0); Mean Corpuscular HGB Conc 31.5 GM/DL (32-36); Mean Corpuscular Volume 86.3 FL (87-102); Monocytes # 0.6 10*3/uL (0.11-0.8); Monocytes % 9.3 % (1.7-12.7); Neutrophils % 66.1 % (38.7-73.9); Platelet Count 53 T/CUMM (130-400); Red Blood Count 3.13 MC/CUMM (3.8-5.5); Red Cell Distribution Width 16.7 % (9.3-17.3); White Blood Count 6.3 T/CUMM (4-12)
[2021-09-19 05:31] LABS: Calcium 8.3 MG/DL (8.5-10.1); Osmolality,Calculated 298.8 MOS/KG (273-304); Potassium 4.5 MMOL/L (3.5-5.1)
[2021-09-19 05:41] LABS: Platelet Estimate Decreased
[2021-09-19] MEDS: PIPERACILLIN/TAZOBACTAM 3,375 MG in SODIUM CHLORIDE 0.9% 100 ML IV SCH (09:11)
[2021-09-19] MEDS: DOCUSATE SODIUM 100 MG CAPSULE PO SCH ×2 (09:11→20:51)
[2021-09-19] MEDS: PANTOPRAZOLE 40 MG TABLET PO SCH (09:11)
[2021-09-19] MEDS: amLODIPine 5 MG TABLET PO SCH (09:11)
[2021-09-19] MEDS: SODIUM BICARBONATE 650 MG TABLET PO SCH ×3 (09:12→20:51)
[2021-09-19] MEDS: BRIMONIDINE 0.1% OPH SOLN 5 ML BOTTLE BOTH EYES SCH ×2 (09:12→20:52)
[2021-09-19] MEDS: SODIUM HYPOCHLORITE 0.25% IRRIG 473 ML BOTTLE TOP SCH (15:35)
[2021-09-19] MEDS: FERROUS SULFATE 325 MG TABLET PO SCH (18:11)
[2021-09-19] MEDS: SIMVASTATIN 10 MG TABLET PO SCH (20:50)
[2021-09-19] MEDS: tiZANidine 4 MG TABLET PO PRN (20:51)
[2021-09-19] MEDS: CALCIUM (CARBONATE)/VITAMIN D 600 MG-400 UNIT TABLET PO SCH (20:51)
[2021-09-20 06:31] LABS: Basophils % 0.5 % (0.0-0.8); Eosinophils # 0.2 10*3/uL (0.0-0.87); Eosinophils % 2.7 % (0.00-10.9); Hematocrit 28.8 VOL% (35.7-47.0); Hemoglobin 9.2 GM/DL (12.0-16.0); Immature Granulocytes % 0.4 %; Immature Granulocytes Absolute 0.02 #; Lymphocytes # 1.3 10*3/uL (1.4-4.0); Mean Corpuscular HGB Conc 31.9 GM/DL (32-36); Mean Corpuscular Volume 85.2 FL (87-102); Monocytes # 0.5 10*3/uL (0.11-0.8); Monocytes % 9.5 % (1.7-12.7); Neutrophils % 63.9 % (38.7-73.9); Platelet Count 54 T/CUMM (130-400); Red Blood Count 3.38 MC/CUMM (3.8-5.5); Red Cell Distribution Width 16.5 % (9.3-17.3); White Blood Count 5.5 T/CUMM (4-12)
[2021-09-20 06:49] LABS: Calcium 8.6 MG/DL (8.5-10.1); Osmolality,Calculated 295.1 MOS/KG (273-304); Platelet Estimate Decreased; Potassium 4.1 MMOL/L (3.5-5.1)
[2021-09-20] MEDS ORDERED: amLODIPine 10 MG TABLET PO SCH (09:00)
[2021-09-20] MEDS: SODIUM BICARBONATE 650 MG TABLET PO SCH ×2 (09:00→17:00)
[2021-09-20] MEDS: PANTOPRAZOLE 40 MG TABLET PO SCH (09:00)
[2021-09-20] MEDS: SODIUM HYPOCHLORITE 0.25% IRRIG 473 ML BOTTLE TOP SCH (09:00)
[2021-09-20] MEDS: DOCUSATE SODIUM 100 MG CAPSULE PO SCH (09:00)
[2021-09-20] MEDS: BRIMONIDINE 0.1% OPH SOLN 5 ML BOTTLE BOTH EYES SCH (11:37)
[2021-09-20 12:15] VITALS: BP 154/79
== END 2021-09-20 16:58 | disposition swing bed (61) | DRG 803 ==
LOC: N.ED 10:52 → N.EDINP 14:26 → N.5E 16:56
PROVIDERS: ADMIT Internal Medicine; ATTEND Internal Medicine

== ENCOUNTER 2021-09-26 22:35 | Inpatient (IN) ==
[2021-09-27 00:07] LABS: Albumin 1.8 G/DL (3.4-5.0); Bilirubin,Total 0.6 MG/DL (0.20-1.00); Calcium 9.2 MG/DL (8.5-10.1); Osmolality,Calculated 301.1 MOS/KG (273-304); Potassium 5.9 MMOL/L (3.5-5.1); Total Protein 6.7 G/DL (6.4-8.2)
[2021-09-27] MEDS ORDERED: DEXTROSE 50% 25 GM/50 ML VIAL IV STA (00:13)
[2021-09-27] MEDS ORDERED: INSULIN REGULAR 100 UNIT/ML IV STA (00:13)
[2021-09-27] MEDS ORDERED: DEXTROSE 50% 25 GM/50 ML SYRINGE IV STA (00:17)
[2021-09-27 00:18] LABS: Basophils % 0.5 % (0.0-0.8); Eosinophils # 0.1 10*3/uL (0.0-0.87); Eosinophils % 1.1 % (0.00-10.9); Hematocrit 26.3 VOL% (35.7-47.0); Hemoglobin 8.2 GM/DL (12.0-16.0); Immature Granulocytes % 0.9 %; Immature Granulocytes Absolute 0.05 #; Lymphocytes # 1.2 10*3/uL (1.4-4.0); Lymphocytes % 21.9 % (21.3-54.2); Mean Corpuscular HGB Conc 31.2 GM/DL (32-36); Mean Corpuscular Volume 85.9 FL (87-102); Mean Platelet Volume 12.6 FL (9.6-12.0); Monocytes # 0.9 10*3/uL (0.11-0.8); Monocytes % 16.2 % (1.7-12.7); NRBC # 0.03 10*3/uL; Neutrophils % 59.4 % (38.7-73.9); Platelet Count 126 T/CUMM (130-400); Red Blood Count 3.06 MC/CUMM (3.8-5.5); Red Cell Distribution Width 17.7 % (9.3-17.3); White Blood Count 5.6 T/CUMM (4-12)
[2021-09-27] MEDS ORDERED: cefTRIAXone 1,000 MG in SODIUM CHLORIDE 0.9% 100 ML IV STA (00:39)
[2021-09-27 00:48] LABS: Lymphocytes 26 % (20-55); Platelet Estimate Decreased; Total Cells Counted 100
[2021-09-27 01:28] LABS: Hyaline Casts,Urine 1 /LPF (0-3); RBC,Urine 5 /HPF (0-4); Squamous Epithelial Cell,Urine Occasional /HPF (0-10); Urine Appearance Clear (Clear); Urine Color Yellow (Yellow)
[2021-09-27 01:29] LABS: Bilirubin,Urine Negative (Negative); Blood, Urine Trace mg/dL (Negative); Glucose,Urine (UA) Negative (Negative); Ketones,Urine Negative (Negative); Nitrite,Urine Negative (Negative); Protein,Urine >=300 mg/dL (Negative); Urine pH 7.5 (4.5-8.0)
[2021-09-27 01:53] LABS: Barbiturates Screen,Urine Negative (Negative); Benzodiazepines Screen,Urine Negative (Negative); Cannabinoid Screen,Urine Negative (Negative); Opiate Screen,Urine Positive (Negative); Phencyclidine Screen,Urine Negative (Negative)
[2021-09-27] MEDS ORDERED: GLUCAGON 1 MG VIAL IM PRN (02:37)
[2021-09-27] MEDS ORDERED: ONDANSETRON 4 MG/2 ML VIAL IV PRN (02:43)
[2021-09-27] MEDS ORDERED: DEXTROSE 10% 250 ML BAG IV PRN (02:58)
[2021-09-27] MEDS ORDERED: LACTULOSE 20 GM/30 ML UDCUP PO ONE (03:30)
[2021-09-27 03:48] LABS: Basophils % 0.5 % (0.0-0.8); Eosinophils # 0.1 10*3/uL (0.0-0.87); Eosinophils % 1.1 % (0.00-10.9); Hematocrit 25.5 VOL% (35.7-47.0); Immature Granulocytes Absolute 0.06 #; Lymphocytes # 1.5 10*3/uL (1.4-4.0); Lymphocytes % 23.6 % (21.3-54.2); Mean Corpuscular HGB Conc 31.4 GM/DL (32-36); Mean Corpuscular Volume 84.7 FL (87-102); Mean Platelet Volume 11.5 FL (9.6-12.0); Monocytes # 1.2 10*3/uL (0.11-0.8); Neutrophils % 54.8 % (38.7-73.9); Platelet Count 117 T/CUMM (130-400); Red Blood Count 3.01 MC/CUMM (3.8-5.5); Red Cell Distribution Width 17.7 % (9.3-17.3); White Blood Count 6.3 T/CUMM (4-12)
[2021-09-27 03:55] LABS: INR 1.1; PT Patient Result 11.9 SECS (10.1-12.1)
[2021-09-27 04:06] LABS: Eosinophils 3 % (0-10); Hypochromia Slight; Lymphocytes 21 % (20-55); Microcytosis Slight; Total Cells Counted 100
[2021-09-27 04:07] LABS: Albumin 1.7 G/DL (3.4-5.0); Bilirubin,Total 0.5 MG/DL (0.20-1.00); Calcium 8.9 MG/DL (8.5-10.1); Potassium 5.3 MMOL/L (3.5-5.1); Total Protein 6.5 G/DL (6.4-8.2)
[2021-09-27] MEDS ORDERED: PROMETHAZINE 25 MG TABLET PO PRN (05:04)
[2021-09-27] MEDS ORDERED: COLCHICINE 0.6 MG CAPSULE PO PRN (05:04)
[2021-09-27] MEDS ORDERED: cloNIDine 0.1 MG TABLET PO PRN (05:04)
[2021-09-27] MEDS ORDERED: CETIRIZINE 10 MG TABLET PO PRN (05:04)
[2021-09-27] MEDS ORDERED: PIPERACILLIN/TAZOBACTAM 3,375 MG in SODIUM CHLORIDE 0.9% 100 ML IV SCH (06:00)
[2021-09-27] MEDS: ALBUTEROL/IPRATROPIUM 3 ML NEB RESP TX SCH ×3 (07:30→19:33)
[2021-09-27] MEDS ORDERED: SODIUM POLYSTYRENE SULFATE 15 GM/60 ML BOTTLE PO ONE (08:57)
[2021-09-27] MEDS ORDERED: LACTULOSE 20 GM/30 ML UDCUP PO SCH (09:00)
[2021-09-27] MEDS: SODIUM CHLORIDE 0.45% 1,000 ML IV SCH ×2 (11:55→20:46)
[2021-09-27] MEDS: PANTOPRAZOLE 40 MG TABLET PO SCH (12:00)
[2021-09-27] MEDS: SODIUM BICARBONATE 650 MG TABLET PO SCH ×3 (12:00→21:44)
[2021-09-27] MEDS: amLODIPine 10 MG TABLET PO SCH (12:00)
[2021-09-27] MEDS ORDERED: BENZOCAINE/BUTAMBEN/TETRACAINE SPRAY 20 GM CAN TOP ONE (15:25)
[2021-09-27] MEDS: LACTULOSE 20 GM/30 ML UDCUP PO SCH ×3 (16:09→21:44)
[2021-09-27] MEDS: CHOLECALCIFEROL 1,000 UNIT TABLET PO SCH (17:11)
[2021-09-27] MEDS: BRIMONIDINE 0.1% OPH SOLN 5 ML BOTTLE BOTH EYES SCH ×2 (17:11→21:44)
[2021-09-27] MEDS: FERROUS SULFATE 325 MG TABLET PO SCH (17:12)
[2021-09-27] MEDS ORDERED: CALCIUM GLUCONATE RIDER 1,000 MG/50 ML PREMIX IV ONE (18:31)
[2021-09-27] MEDS ORDERED: ALBUTEROL 2.5 MG/3 ML NEB RESP TX ONE (18:33)
[2021-09-27] MEDS ORDERED: ETOMIDATE 20 MG/10 ML VIAL IV ONE ×2 (18:50→18:57)
[2021-09-27] MEDS ORDERED: ROCURONIUM 100 MG/10 ML VIAL IV ONE ×2 (18:50→18:58)
[2021-09-27] MEDS ORDERED: SODIUM ZIRCONIUM CYCLOSILICATE 10 GM PACK PER TUBE ONE (19:00)
[2021-09-27 19:33] LABS: Basophils % 0.7 % (0.0-0.8); Eosinophils % 0.2 % (0.00-10.9); Hematocrit 25.6 VOL% (35.7-47.0); Hemoglobin 8.2 GM/DL (12.0-16.0); Immature Granulocytes % 0.7 %; Immature Granulocytes Absolute 0.04 #; Lymphocytes # 0.8 10*3/uL (1.4-4.0); Lymphocytes % 13.5 % (21.3-54.2); Mean Corpuscular Volume 84.8 FL (87-102); Mean Platelet Volume 11.7 FL (9.6-12.0); Monocytes % 16.5 % (1.7-12.7); NRBC # 0.03 10*3/uL; Neutrophils % 68.4 % (38.7-73.9); Platelet Count 145 T/CUMM (130-400); Red Blood Count 3.02 MC/CUMM (3.8-5.5); Red Cell Distribution Width 17.9 % (9.3-17.3)
[2021-09-27 19:48] LABS: Arterial Base Excess iSTAT -1 MMOL/L (-2.5-2.5); Arterial Bicarbonate iSTAT 23.8 MMOL/L (20-26); Arterial O2 Saturation iSTAT 100 % (95-100); Arterial PCO2 iSTAT 39 MM HG (35-48); Arterial PO2 iSTAT 351 MM HG (80-95); Arterial Total CO2 iSTAT 25 MMO/L (23-27); Arterial pH iSTAT 7.397 (7.35-7.45)
[2021-09-27 20:06] LABS: Alanine Aminotransferase 38 U/L (13-56); Albumin 1.9 G/DL (3.4-5.0); Alkaline Phosphatase 110 U/L (45-117); Aspartate Amino Transferase 91 U/L (0-37); Blood Urea Nitrogen 70 MG/DL (7-18); Calcium 8.6 MG/DL (8.5-10.1); Carbon Dioxide 21 MMOL/L (21-32); Chloride 112 MMOL/L (98-107); Glucose 119 MG/DL (74-106); Phosphorous 4.9 MG/DL (2.5-4.9); Potassium 5.8 MMOL/L (3.5-5.1); Sodium 143 MMOL/L (136-145)
[2021-09-27 20:13] LABS: Lymphocytes 11 % (20-55); Total Cells Counted 100
[2021-09-27 20:15] LABS: Platelet Estimate Adequate
[2021-09-27 20:18] LABS: INR 1.2; PT Patient Result 12.8 SECS (10.1-12.1); Partial Thromboplastin Time 30.8 SECS (23.7-32.9)
[2021-09-27] MEDS: CALCIUM (CARBONATE)/VITAMIN D 600 MG-400 UNIT TABLET PO SCH (21:44)
[2021-09-27 23:05] LABS: Bacteria,Urine Occasional /HPF (Few); Bilirubin,Urine Negative (Negative); Blood, Urine Trace mg/dL (Negative); Glucose,Urine (UA) Negative (Negative); Ketones,Urine Negative (Negative); Mucus,Urine Occasional /LPF (Occasional); Nitrite,Urine Negative (Negative); Protein,Urine 100 mg/dL (Negative); RBC,Urine 8 /HPF (0-4); Squamous Epithelial Cell,Urine Occasional /HPF (0-10); Urine Appearance Clear (Clear); Urine Color Yellow (Yellow); Urine Specific Gravity 1.015 (1.001-1.035); Urine pH 6.5 (4.5-8.0)
[2021-09-28] MEDS: LACTULOSE 20 GM/30 ML UDCUP PO SCH ×6 (01:01→21:09)
[2021-09-28] MEDS: ALBUTEROL/IPRATROPIUM 3 ML NEB RESP TX SCH ×4 (01:20→19:30)
[2021-09-28 03:06] LABS: Arterial Base Excess iSTAT -1 MMOL/L (-2.5-2.5); Arterial Bicarbonate iSTAT 22.6 MMOL/L (20-26); Arterial O2 Saturation iSTAT 99 % (95-100); Arterial PCO2 iSTAT 30 MM HG (35-48); Arterial PO2 iSTAT 128 MM HG (80-95); Arterial Total CO2 iSTAT 23 MMO/L (23-27); Arterial pH iSTAT 7.484 (7.35-7.45)
[2021-09-28 04:40] LABS: Calcium 8.8 MG/DL (8.5-10.1)
[2021-09-28 04:41] LABS: Potassium 6.1 MMOL/L (3.5-5.1)
[2021-09-28 04:47] LABS: Basophils # 0.1 10*3/uL (0.0-0.2); Basophils % 0.6 % (0.0-0.8); Eosinophils % 0.4 % (0.00-10.9); Hematocrit 25.2 VOL% (35.7-47.0); Immature Granulocytes % 0.7 %; Immature Granulocytes Absolute 0.06 #; Lymphocytes # 1.5 10*3/uL (1.4-4.0); Lymphocytes % 18.4 % (21.3-54.2); Mean Corpuscular HGB Conc 31.7 GM/DL (32-36); Mean Corpuscular Volume 87.2 FL (87-102); Mean Platelet Volume 11.6 FL (9.6-12.0); Monocytes # 1.5 10*3/uL (0.11-0.8); Monocytes % 18.9 % (1.7-12.7); NRBC # 0.04 10*3/uL; Platelet Count 152 T/CUMM (130-400); Red Blood Count 2.89 MC/CUMM (3.8-5.5); Red Cell Distribution Width 18.4 % (9.3-17.3); White Blood Count 8.1 T/CUMM (4-12)
[2021-09-28] MEDS ORDERED: SODIUM POLYSTYRENE SULFATE 15 GM/60 ML BOTTLE PO ONE (05:00)
[2021-09-28] MEDS ORDERED: SODIUM ZIRCONIUM CYCLOSILICATE 10 GM PACK PO ONE (05:15)
[2021-09-28 05:17] LABS: Eosinophils 2 % (0-10); Hypochromia Slight; Lymphocytes 10 % (20-55); Microcytosis Slight; Platelet Estimate Adequate; Total Cells Counted 100
[2021-09-28] MEDS: SODIUM BICARBONATE 650 MG TABLET PO SCH ×3 (08:47→21:09)
[2021-09-28] MEDS: CHOLECALCIFEROL 1,000 UNIT TABLET PO SCH (08:47)
[2021-09-28] MEDS: amLODIPine 10 MG TABLET PO SCH (08:47)
[2021-09-28] MEDS: PANTOPRAZOLE 40 MG TABLET PO SCH (08:52)
[2021-09-28] MEDS: BRIMONIDINE 0.1% OPH SOLN 5 ML BOTTLE BOTH EYES SCH ×2 (10:07→21:08)
[2021-09-28] MEDS ORDERED: ZINC OXIDE PASTE 113 GM TUBE TOP PRN (12:37)
[2021-09-28] MEDS ORDERED: SODIUM CHLORIDE 0.9% 500 ML IV ONE (13:16)
[2021-09-28] MEDS: FERROUS SULFATE 325 MG TABLET PO SCH (16:05)
[2021-09-28 16:32] LABS: Hepatitis B Core IgM Quant 0.15 Index; Hepatitis B Surface Ag Quant < 0.10 Index; Hepatitis B Surface Ag Result Non-Reactive (NonReactive); Hepatitis C Virus Ab Quant > 11.00 Index; Hepatitis C Virus Ab Result Reactive (NonReactive)
[2021-09-28] MEDS: CALCIUM (CARBONATE)/VITAMIN D 600 MG-400 UNIT TABLET PO SCH (21:09)
[2021-09-28] MEDS: HEPARIN 5,000 UNIT/1 ML VIAL SUBCUT SCH (21:09)
[2021-09-29] MEDS: ALBUTEROL/IPRATROPIUM 3 ML NEB RESP TX SCH ×4 (00:30→19:35)
[2021-09-29] MEDS: LACTULOSE 20 GM/30 ML UDCUP PO SCH ×6 (01:26→21:00)
[2021-09-29 04:23] LABS: ABG Base Excess -2.2 MMOL/L (-2.5-2.5); ABG HCO3 22.6 MMOL/L (20-26); ABG Oxygen Saturation 99.5 % (95-100); ABG PCO2 24.6 MM HG (35-48); ABG PH 7.515 (7.35-7.45); ABG TCO2 18.4 MMOL/L (23-27)
[2021-09-29 04:31] LABS: Basophils % 0.3 % (0.0-0.8); Eosinophils % 0.2 % (0.00-10.9); Hematocrit 25.5 VOL% (35.7-47.0); Immature Granulocytes % 1.4 %; Immature Granulocytes Absolute 0.16 #; Lymphocytes # 1.5 10*3/uL (1.4-4.0); Lymphocytes % 13.2 % (21.3-54.2); Mean Corpuscular HGB Conc 31.4 GM/DL (32-36); Mean Corpuscular Volume 85.9 FL (87-102); Mean Platelet Volume 11.4 FL (9.6-12.0); Monocytes # 2.2 10*3/uL (0.11-0.8); Monocytes % 18.4 % (1.7-12.7); NRBC # 0.11 10*3/uL; Neutrophils % 66.5 % (38.7-73.9); Platelet Count 170 T/CUMM (130-400); Red Blood Count 2.97 MC/CUMM (3.8-5.5); Red Cell Distribution Width 18.6 % (9.3-17.3); White Blood Count 11.7 T/CUMM (4-12)
[2021-09-29 04:53] LABS: Albumin 1.9 G/DL (3.4-5.0); Calcium 9.7 MG/DL (8.5-10.1); Phosphorous 6.4 MG/DL (2.5-4.9); Potassium 5.6 MMOL/L (3.5-5.1); Total Protein 6.8 G/DL (6.4-8.2)
[2021-09-29 06:33] LABS: Band Neutrophils 1 % (0-10); Lymphocytes 13 % (20-55); Nucleated Red Blood Cells 3 /100 WBC (0-5); Platelet Estimate Normal; Total Cells Counted 100
[2021-09-29 06:38] LABS: Anisocytosis 1+
[2021-09-29] MEDS: BRIMONIDINE 0.1% OPH SOLN 5 ML BOTTLE BOTH EYES SCH ×2 (08:05→20:22)
[2021-09-29] MEDS: HEPARIN 5,000 UNIT/1 ML VIAL SUBCUT SCH ×2 (08:06→20:22)
[2021-09-29] MEDS: PANTOPRAZOLE 40 MG VIAL IV SCH (08:06)
[2021-09-29] MEDS: CHOLECALCIFEROL 1,000 UNIT TABLET PO SCH ×2 (08:06→09:09)
[2021-09-29] MEDS: SODIUM BICARBONATE 650 MG TABLET PO SCH ×4 (08:06→20:22)
[2021-09-29] MEDS: amLODIPine 10 MG TABLET PO SCH ×2 (08:06→09:09)
[2021-09-29] MEDS ORDERED: HEPARIN 10,000 UNIT/10 ML VIAL IV PRN (09:04)
[2021-09-29] MEDS: DOXYCYCLINE HYCLATE INJ 100 MG in SODIUM CHLORIDE 0.9% 100 ML IV SCH ×2 (09:27→20:21)
[2021-09-29] MEDS ORDERED: ALBUMIN 25% 25 GM/100 ML VIAL IV PRN (10:07)
[2021-09-29] MEDS: FERROUS SULFATE 325 MG TABLET PO SCH (16:41)
[2021-09-29] MEDS: metroNIDAZOLE INJ 500 MG/100 ML PREMIX IV SCH (18:46)
[2021-09-29] MEDS: MEROPENEM 500 MG in SODIUM CHLORIDE 0.9% 100 ML IV SCH (20:22)
[2021-09-29] MEDS: CALCIUM (CARBONATE)/VITAMIN D 600 MG-400 UNIT TABLET PO SCH (20:22)
[2021-09-30] MEDS: ALBUTEROL/IPRATROPIUM 3 ML NEB RESP TX SCH ×4 (01:41→19:40)
[2021-09-30] MEDS: LACTULOSE 20 GM/30 ML UDCUP PO SCH ×6 (02:48→21:17)
[2021-09-30] MEDS: metroNIDAZOLE INJ 500 MG/100 ML PREMIX IV SCH ×3 (02:50→19:34)
[2021-09-30 03:26] LABS: ABG HCO3 23.6 MMOL/L (20-26); ABG Oxygen Saturation 98.6 % (95-100); ABG PCO2 28.5 MM HG (35-48); ABG PH 7.487 (7.35-7.45); ABG TCO2 19.6 MMOL/L (23-27)
[2021-09-30 03:27] LABS: Basophils % 0.2 % (0.0-0.8); Eosinophils % 0.2 % (0.00-10.9); Hematocrit 23.4 VOL% (35.7-47.0); Hemoglobin 7.3 GM/DL (12.0-16.0); Immature Granulocytes % 1.3 %; Immature Granulocytes Absolute 0.15 #; Lymphocytes # 1.3 10*3/uL (1.4-4.0); Lymphocytes % 11.1 % (21.3-54.2); Mean Corpuscular HGB Conc 31.2 GM/DL (32-36); Mean Corpuscular Volume 85.4 FL (87-102); Mean Platelet Volume 10.3 FL (9.6-12.0); Monocytes # 1.8 10*3/uL (0.11-0.8); NRBC # 0.08 10*3/uL; Neutrophils % 72.2 % (38.7-73.9); Platelet Count 117 T/CUMM (130-400); Red Blood Count 2.74 MC/CUMM (3.8-5.5); White Blood Count 11.8 T/CUMM (4-12)
[2021-09-30] MEDS: fentaNYL 100 MCG/2 ML VIAL IV PRN ×2 (03:40→05:49)
[2021-09-30 04:06] LABS: Albumin 2.1 G/DL (3.4-5.0); Bilirubin,Total 1.1 MG/DL (0.20-1.00); Calcium 9.1 MG/DL (8.5-10.1); Potassium 4.9 MMOL/L (3.5-5.1); Total Protein 6.4 G/DL (6.4-8.2)
[2021-09-30 04:27] LABS: Phosphorous 6.1 MG/DL (2.5-4.9)
[2021-09-30] MEDS: MIDAZOLAM 2 MG/2 ML VIAL IV PRN (05:49)
[2021-09-30] MEDS: PANTOPRAZOLE 40 MG VIAL IV SCH (10:44)
[2021-09-30] MEDS: DOXYCYCLINE HYCLATE INJ 100 MG in SODIUM CHLORIDE 0.9% 100 ML IV SCH ×2 (10:44→21:16)
[2021-09-30] MEDS: BRIMONIDINE 0.1% OPH SOLN 5 ML BOTTLE BOTH EYES SCH ×2 (10:44→21:16)
[2021-09-30] MEDS: MORPHINE 2 MG/1 ML SYRINGE IV PRN ×2 (15:23→21:17)
[2021-09-30] MEDS: FERROUS SULFATE 325 MG TABLET PO SCH (17:51)
[2021-09-30] MEDS: CALCIUM (CARBONATE)/VITAMIN D 600 MG-400 UNIT TABLET PO SCH (20:03)
[2021-09-30] MEDS: MEROPENEM 500 MG in SODIUM CHLORIDE 0.9% 100 ML IV SCH (21:17)
[2021-10-01] MEDS: metroNIDAZOLE INJ 500 MG/100 ML PREMIX IV SCH ×3 (02:12→17:00)
[2021-10-01] MEDS: LACTULOSE 20 GM/30 ML UDCUP PO SCH ×6 (02:12→21:01)
[2021-10-01] MEDS: ALBUTEROL/IPRATROPIUM 3 ML NEB RESP TX SCH ×5 (02:16→23:53)
[2021-10-01] MEDS: fentaNYL 100 MCG/2 ML VIAL IV PRN ×2 (02:28→15:06)
[2021-10-01] MEDS: METOPROLOL TARTRATE 5 MG/5 ML VIAL IV PRN ×2 (03:04→12:21)
[2021-10-01 03:48] LABS: Basophils % 0.2 % (0.0-0.8); Eosinophils # 0.1 10*3/uL (0.0-0.87); Eosinophils % 1.3 % (0.00-10.9); Hematocrit 23.3 VOL% (35.7-47.0); Hemoglobin 7.2 GM/DL (12.0-16.0); Immature Granulocytes % 1.5 %; Immature Granulocytes Absolute 0.16 #; Lymphocytes # 1.5 10*3/uL (1.4-4.0); Lymphocytes % 14.7 % (21.3-54.2); Mean Corpuscular HGB Conc 30.9 GM/DL (32-36); Mean Corpuscular Volume 86.3 FL (87-102); Mean Platelet Volume 11.7 FL (9.6-12.0); Monocytes # 1.9 10*3/uL (0.11-0.8); Monocytes % 17.8 % (1.7-12.7); Neutrophils % 64.5 % (38.7-73.9); Platelet Count 123 T/CUMM (130-400); Red Cell Distribution Width 19.3 % (9.3-17.3); White Blood Count 10.4 T/CUMM (4-12)
[2021-10-01 03:53] LABS: ABG Base Excess -0.1 MMOL/L (-2.5-2.5); ABG HCO3 24.4 MMOL/L (20-26); ABG Oxygen Saturation 99.3 % (95-100); ABG PCO2 30.7 MM HG (35-48); ABG PH 7.483 (7.35-7.45); ABG TCO2 21.6 MMOL/L (23-27)
[2021-10-01 04:11] LABS: Eosinophils 2 % (0-10); Hypochromia Slight; Lymphocytes 9 % (20-55); Microcytosis Slight; Nucleated Red Blood Cells 2 /100 WBC (0-5); Platelet Estimate Normal; Total Cells Counted 100
[2021-10-01 04:31] LABS: Albumin 2.4 G/DL (3.4-5.0); Bilirubin,Total 1.3 MG/DL (0.20-1.00); Osmolality,Calculated 298.1 MOS/KG (273-304); Potassium 4.6 MMOL/L (3.5-5.1); Total Protein 6.3 G/DL (6.4-8.2)
[2021-10-01] MEDS: DOXYCYCLINE HYCLATE INJ 100 MG in SODIUM CHLORIDE 0.9% 100 ML IV SCH ×2 (08:12→20:18)
[2021-10-01] MEDS: PANTOPRAZOLE 40 MG VIAL IV SCH (08:12)
[2021-10-01] MEDS: BRIMONIDINE 0.1% OPH SOLN 5 ML BOTTLE BOTH EYES SCH ×2 (08:22→20:18)
[2021-10-01] MEDS: MIDAZOLAM 2 MG/2 ML VIAL IV PRN (16:04)
[2021-10-01] MEDS: FERROUS SULFATE 325 MG TABLET PO SCH (16:04)
[2021-10-01] MEDS ORDERED: cloNIDine 0.3 MG/24 HR PATCH TRANSDERM SCH (16:30)
[2021-10-01] MEDS: MEROPENEM 500 MG in SODIUM CHLORIDE 0.9% 100 ML IV SCH (20:18)
[2021-10-01] MEDS: CALCIUM (CARBONATE)/VITAMIN D 600 MG-400 UNIT TABLET PO SCH (20:18)
[2021-10-02] MEDS: LACTULOSE 20 GM/30 ML UDCUP PO SCH ×6 (01:36→21:56)
[2021-10-02] MEDS: metroNIDAZOLE INJ 500 MG/100 ML PREMIX IV SCH ×3 (01:36→17:29)
[2021-10-02 04:29] LABS: ABG Base Excess -0.8 MMOL/L (-2.5-2.5); ABG HCO3 23.8 MMOL/L (20-26); ABG PCO2 31.4 MM HG (35-48); ABG PH 7.465 (7.35-7.45); ABG TCO2 21.3 MMOL/L (23-27)
[2021-10-02 04:35] LABS: Hematocrit 22.7 VOL% (35.7-47.0); Mean Platelet Volume 11.3 FL (9.6-12.0)
[2021-10-02 04:42] LABS: Basophils % 0.2 % (0.0-0.8); Eosinophils # 0.2 10*3/uL (0.0-0.87); Eosinophils % 1.5 % (0.00-10.9); Immature Granulocytes % 2.1 %; Lymphocytes # 1.4 10*3/uL (1.4-4.0); Lymphocytes % 14.8 % (21.3-54.2); Mean Corpuscular HGB Conc 30.8 GM/DL (32-36); Monocytes % 20.1 % (1.7-12.7); NRBC # 0.12 10*3/uL; Neutrophils % 61.3 % (38.7-73.9); Platelet Count 101 T/CUMM (130-400); Red Blood Count 2.61 MC/CUMM (3.8-5.5); White Blood Count 9.7 T/CUMM (4-12)
[2021-10-02] MEDS: fentaNYL 100 MCG/2 ML VIAL IV PRN ×3 (04:51→22:46)
[2021-10-02] MEDS: MIDAZOLAM 2 MG/2 ML VIAL IV PRN ×3 (04:52→21:12)
[2021-10-02 04:53] LABS: Albumin 2.1 G/DL (3.4-5.0); Calcium 9.3 MG/DL (8.5-10.1); Osmolality,Calculated 303.1 MOS/KG (273-304); Phosphorous 6.5 MG/DL (2.5-4.9); Potassium 4.5 MMOL/L (3.5-5.1); Total Protein 5.8 G/DL (6.4-8.2)
[2021-10-02 04:54] LABS: Eosinophils 2 % (0-10); Hypochromia Slight; Lymphocytes 12 % (20-55); Microcytosis Slight; Nucleated Red Blood Cells 2 /100 WBC (0-5); Total Cells Counted 100
[2021-10-02] MEDS: ALBUTEROL/IPRATROPIUM 3 ML NEB RESP TX SCH ×3 (07:00→19:43)
[2021-10-02] MEDS ORDERED: SODIUM CHLORIDE 0.9% 1,000 ML IV PRN (08:00)
[2021-10-02] MEDS: PANTOPRAZOLE 40 MG VIAL IV SCH (08:04)
[2021-10-02] MEDS: DOXYCYCLINE HYCLATE INJ 100 MG in SODIUM CHLORIDE 0.9% 100 ML IV SCH ×2 (08:04→21:00)
[2021-10-02] MEDS: BRIMONIDINE 0.1% OPH SOLN 5 ML BOTTLE BOTH EYES SCH ×2 (08:17→21:39)
[2021-10-02] MEDS ORDERED: ALTEPLASE 2 MG VIAL IV SCH (09:00)
[2021-10-02] MEDS ORDERED: EPOETIN ALFA-EPBX 4,000 UNIT/ML VIAL IV PRN (11:47)
[2021-10-02] MEDS: MENTHOL/ZINC OXIDE OINT 71 GM JAR TOP SCH ×2 (15:35→21:39)
[2021-10-02] MEDS: FERROUS SULFATE 325 MG TABLET PO SCH (17:18)
[2021-10-02] MEDS: MORPHINE 2 MG/1 ML SYRINGE IV PRN (19:52)
[2021-10-02] MEDS: MEROPENEM 500 MG in SODIUM CHLORIDE 0.9% 100 ML IV SCH (20:04)
[2021-10-02] MEDS: METOPROLOL TARTRATE 5 MG/5 ML VIAL IV PRN (20:36)
[2021-10-02] MEDS: CALCIUM (CARBONATE)/VITAMIN D 600 MG-400 UNIT TABLET PO SCH (21:39)
[2021-10-03] MEDS: ALBUTEROL/IPRATROPIUM 3 ML NEB RESP TX SCH ×4 (00:08→19:24)
[2021-10-03] MEDS: MIDAZOLAM 2 MG/2 ML VIAL IV PRN ×2 (02:06→05:27)
[2021-10-03] MEDS: metroNIDAZOLE INJ 500 MG/100 ML PREMIX IV SCH ×3 (02:30→17:22)
[2021-10-03] MEDS: LACTULOSE 20 GM/30 ML UDCUP PO SCH ×6 (02:30→22:34)
[2021-10-03] MEDS: fentaNYL 100 MCG/2 ML VIAL IV PRN (03:15)
[2021-10-03 03:37] LABS: ABG Base Excess -0.4 MMOL/L (-2.5-2.5); ABG HCO3 24.1 MMOL/L (20-26); ABG Oxygen Saturation 98.9 % (95-100); ABG PCO2 35.3 MM HG (35-48); ABG PH 7.432 (7.35-7.45); ABG TCO2 21.8 MMOL/L (23-27)
[2021-10-03 03:41] LABS: Basophils % 0.3 % (0.0-0.8); Eosinophils # 0.2 10*3/uL (0.0-0.87); Eosinophils % 1.7 % (0.00-10.9); Hematocrit 26.8 VOL% (35.7-47.0); Hemoglobin 8.4 GM/DL (12.0-16.0); Immature Granulocytes % 1.4 %; Immature Granulocytes Absolute 0.15 #; Lymphocytes # 1.4 10*3/uL (1.4-4.0); Lymphocytes % 13.2 % (21.3-54.2); Mean Corpuscular HGB Conc 31.3 GM/DL (32-36); Mean Corpuscular Volume 86.5 FL (87-102); Mean Platelet Volume 11.5 FL (9.6-12.0); Monocytes # 2.4 10*3/uL (0.11-0.8); Monocytes % 22.1 % (1.7-12.7); NRBC # 0.13 10*3/uL; Neutrophils % 61.3 % (38.7-73.9); Platelet Count 76 T/CUMM (130-400); Red Cell Distribution Width 20.4 % (9.3-17.3); White Blood Count 10.8 T/CUMM (4-12)
[2021-10-03 03:59] LABS: Albumin 2.2 G/DL (3.4-5.0); Bilirubin,Total 1.3 MG/DL (0.20-1.00); Calcium 9.3 MG/DL (8.5-10.1); Osmolality,Calculated 295.4 MOS/KG (273-304); Potassium 4.2 MMOL/L (3.5-5.1)
[2021-10-03 04:02] LABS: Eosinophils 2 % (0-10); Hypochromia Slight; Lymphocytes 7 % (20-55); Microcytosis Slight; Platelet Estimate Decreased; Total Cells Counted 100
[2021-10-03] MEDS: MORPHINE 2 MG/1 ML SYRINGE IV PRN ×2 (07:58→18:31)
[2021-10-03] MEDS: DOXYCYCLINE HYCLATE INJ 100 MG in SODIUM CHLORIDE 0.9% 100 ML IV SCH ×2 (08:01→21:05)
[2021-10-03] MEDS: PANTOPRAZOLE 40 MG VIAL IV SCH (08:01)
[2021-10-03] MEDS: MENTHOL/ZINC OXIDE OINT 71 GM JAR TOP SCH ×2 (09:07→20:43)
[2021-10-03] MEDS: BRIMONIDINE 0.1% OPH SOLN 5 ML BOTTLE BOTH EYES SCH ×2 (09:07→20:43)
[2021-10-03 10:24] LABS: Arterial Base Excess iSTAT -1 MMOL/L (-2.5-2.5); Arterial Bicarbonate iSTAT 22.5 MMOL/L (20-26); Arterial O2 Saturation iSTAT 98 % (95-100); Arterial PCO2 iSTAT 32 MM HG (35-48); Arterial PO2 iSTAT 91 MM HG (80-95); Arterial Total CO2 iSTAT 23 MMO/L (23-27); Arterial pH iSTAT 7.452 (7.35-7.45)
[2021-10-03 12:03] LABS: INR 1.4; PT Patient Result 15.6 SECS (10.1-12.1)
[2021-10-03] MEDS: RIFAXIMIN 550 MG TABLET PO SCH ×2 (12:22→20:44)
[2021-10-03] MEDS: FERROUS SULFATE 325 MG TABLET PO SCH (17:23)
[2021-10-03] MEDS ORDERED: MORPHINE 2 MG/1 ML SYRINGE IV PRN (19:08)
[2021-10-03] MEDS: CALCIUM (CARBONATE)/VITAMIN D 600 MG-400 UNIT TABLET PO SCH (20:43)
[2021-10-03] MEDS: MEROPENEM 500 MG in SODIUM CHLORIDE 0.9% 100 ML IV SCH (20:43)
[2021-10-03] MEDS: FAMOTIDINE 20 MG/2 ML VIAL IV SCH (20:43)
[2021-10-04] MEDS: LACTULOSE 20 GM/30 ML UDCUP PO SCH ×6 (02:32→21:25)
[2021-10-04] MEDS: metroNIDAZOLE INJ 500 MG/100 ML PREMIX IV SCH ×3 (02:32→18:42)
[2021-10-04 04:45] LABS: ABG Base Excess -2.7 MMOL/L (-2.5-2.5); ABG HCO3 22.1 MMOL/L (20-26); ABG Oxygen Saturation 94.5 % (95-100); ABG PCO2 35.4 MM HG (35-48); ABG PH 7.395 (7.35-7.45); ABG PO2 75.9 MM HG (80-95); ABG TCO2 20.1 MMOL/L (23-27)
[2021-10-04 05:04] LABS: Basophils % 0.4 % (0.0-0.8); Eosinophils # 0.1 10*3/uL (0.0-0.87); Eosinophils % 1.2 % (0.00-10.9); Hematocrit 26.2 VOL% (35.7-47.0); Hemoglobin 8.2 GM/DL (12.0-16.0); Immature Granulocytes % 2.7 %; Immature Granulocytes Absolute 0.29 #; Lymphocytes # 1.2 10*3/uL (1.4-4.0); Lymphocytes % 11.6 % (21.3-54.2); Mean Corpuscular HGB Conc 31.3 GM/DL (32-36); Mean Corpuscular Volume 87.3 FL (87-102); Monocytes # 2.6 10*3/uL (0.11-0.8); Monocytes % 24.4 % (1.7-12.7); NRBC # 0.13 10*3/uL; Neutrophils % 59.7 % (38.7-73.9); Platelet Count 63 T/CUMM (130-400); Red Cell Distribution Width 20.7 % (9.3-17.3); White Blood Count 10.6 T/CUMM (4-12)
[2021-10-04 05:14] LABS: INR 1.5; PT Patient Result 16.3 SECS (10.1-12.1)
[2021-10-04 05:23] LABS: Albumin 2.2 G/DL (3.4-5.0); Bilirubin,Total 1.6 MG/DL (0.20-1.00); Calcium 9.9 MG/DL (8.5-10.1); Osmolality,Calculated 302.1 MOS/KG (273-304); Potassium 4.2 MMOL/L (3.5-5.1); Total Protein 6.2 G/DL (6.4-8.2)
[2021-10-04 05:25] LABS: Band Neutrophils 2 % (0-10); Hypochromia Slight; Lymphocytes 3 % (20-55); Microcytosis Slight; Platelet Estimate Decreased; Total Cells Counted 100
[2021-10-04] MEDS: ALBUTEROL/IPRATROPIUM 3 ML NEB RESP TX SCH ×4 (07:14→19:19)
[2021-10-04] MEDS: MENTHOL/ZINC OXIDE OINT 71 GM JAR TOP SCH ×2 (09:00→21:24)
[2021-10-04] MEDS: BRIMONIDINE 0.1% OPH SOLN 5 ML BOTTLE BOTH EYES SCH ×2 (09:01→21:24)
[2021-10-04] MEDS: RIFAXIMIN 550 MG TABLET PO SCH ×2 (09:02→21:24)
[2021-10-04] MEDS: FAMOTIDINE 20 MG/2 ML VIAL IV SCH ×2 (09:02→21:24)
[2021-10-04] MEDS ORDERED: ALTEPLASE 2 MG VIAL INTRACATH ONE (11:30)
[2021-10-04] MEDS: FERROUS SULFATE 325 MG TABLET PO SCH (18:42)
[2021-10-04] MEDS: MEROPENEM 500 MG in SODIUM CHLORIDE 0.9% 100 ML IV SCH (21:24)
[2021-10-04] MEDS: CALCIUM (CARBONATE)/VITAMIN D 600 MG-400 UNIT TABLET PO SCH (21:24)
[2021-10-04] MEDS: METOPROLOL TARTRATE 5 MG/5 ML VIAL IV PRN (23:16)
[2021-10-05] MEDS: ALBUTEROL/IPRATROPIUM 3 ML NEB RESP TX SCH ×4 (00:18→20:11)
[2021-10-05] MEDS: metroNIDAZOLE INJ 500 MG/100 ML PREMIX IV SCH ×3 (03:35→17:58)
[2021-10-05] MEDS: LACTULOSE 20 GM/30 ML UDCUP PO SCH ×6 (03:35→21:02)
[2021-10-05 05:28] LABS: Basophils % 0.4 % (0.0-0.8); Eosinophils # 0.1 10*3/uL (0.0-0.87); Eosinophils % 1.1 % (0.00-10.9); Hemoglobin 8.2 GM/DL (12.0-16.0); Immature Granulocytes % 3.4 %; Immature Granulocytes Absolute 0.34 #; Lymphocytes # 1.1 10*3/uL (1.4-4.0); Lymphocytes % 10.9 % (21.3-54.2); Mean Corpuscular HGB Conc 30.4 GM/DL (32-36); Mean Corpuscular Volume 89.4 FL (87-102); Monocytes # 2.3 10*3/uL (0.11-0.8); Monocytes % 22.8 % (1.7-12.7); NRBC # 0.12 10*3/uL; Neutrophils % 61.4 % (38.7-73.9); Platelet Count 42 T/CUMM (130-400); Red Blood Count 3.02 MC/CUMM (3.8-5.5); Red Cell Distribution Width 21.3 % (9.3-17.3); White Blood Count 10.1 T/CUMM (4-12)
[2021-10-05 05:45] LABS: Albumin 2.1 G/DL (3.4-5.0); Bilirubin,Total 1.6 MG/DL (0.20-1.00); Calcium 10.5 MG/DL (8.5-10.1); Potassium 3.9 MMOL/L (3.5-5.1); Total Protein 6.2 G/DL (6.4-8.2)
[2021-10-05 05:54] LABS: Eosinophils 1 % (0-10); Lymphocytes 11 % (20-55); Platelet Estimate Decreased; Total Cells Counted 100
[2021-10-05 05:55] LABS: Hypochromia Slight
[2021-10-05] MEDS: FAMOTIDINE 20 MG/2 ML VIAL IV SCH ×2 (09:37→21:02)
[2021-10-05] MEDS: BRIMONIDINE 0.1% OPH SOLN 5 ML BOTTLE BOTH EYES SCH ×2 (09:38→21:02)
[2021-10-05] MEDS: MENTHOL/ZINC OXIDE OINT 71 GM JAR TOP SCH ×2 (09:38→21:02)
[2021-10-05] MEDS: RIFAXIMIN 550 MG TABLET PO SCH ×2 (12:59→21:02)
[2021-10-05] MEDS: POLYETHYLENE GLYCOL POWDER 17 GM PACK PO SCH (13:00)
[2021-10-05] MEDS: FERROUS SULFATE 325 MG TABLET PO SCH (17:57)
[2021-10-05] MEDS: MEROPENEM 500 MG in SODIUM CHLORIDE 0.9% 100 ML IV SCH (21:02)
[2021-10-05] MEDS: CALCIUM (CARBONATE)/VITAMIN D 600 MG-400 UNIT TABLET PO SCH (21:17)
[2021-10-06] MEDS: ALBUTEROL/IPRATROPIUM 3 ML NEB RESP TX SCH ×3 (00:31→12:35)
[2021-10-06 04:20] LABS: Basophils % 0.2 % (0.0-0.8); Eosinophils # 0.1 10*3/uL (0.0-0.87); Eosinophils % 0.6 % (0.00-10.9); Hematocrit 25.8 VOL% (35.7-47.0); Hemoglobin 8.2 GM/DL (12.0-16.0); Immature Granulocytes % 2.3 %; Immature Granulocytes Absolute 0.22 #; Lymphocytes # 1.3 10*3/uL (1.4-4.0); Lymphocytes % 13.5 % (21.3-54.2); Mean Corpuscular HGB Conc 31.8 GM/DL (32-36); Mean Corpuscular Volume 87.2 FL (87-102); Monocytes # 2.1 10*3/uL (0.11-0.8); Monocytes % 21.8 % (1.7-12.7); Neutrophils % 61.6 % (38.7-73.9); Red Blood Count 2.96 MC/CUMM (3.8-5.5); Red Cell Distribution Width 21.4 % (9.3-17.3); White Blood Count 9.5 T/CUMM (4-12)
[2021-10-06] MEDS: LACTULOSE 20 GM/30 ML UDCUP PO SCH ×2 (04:30→06:16)
[2021-10-06 04:31] LABS: Platelet Count 29 T/CUMM (130-400)
[2021-10-06] MEDS: metroNIDAZOLE INJ 500 MG/100 ML PREMIX IV SCH (04:31)
[2021-10-06 04:36] LABS: Albumin 1.9 G/DL (3.4-5.0); Bilirubin,Total 1.7 MG/DL (0.20-1.00); Calcium 9.9 MG/DL (8.5-10.1); Osmolality,Calculated 299.1 MOS/KG (273-304); Potassium 3.5 MMOL/L (3.5-5.1); Total Protein 5.9 G/DL (6.4-8.2)
[2021-10-06 04:42] LABS: Anisocytosis 2+; Eosinophils 1 % (0-10); Lymphocytes 16 % (20-55); Poikilocytosis 2+; Polychromasia 2+; Target Cells 1+; Total Cells Counted 100
[2021-10-06 04:43] LABS: Platelet Estimate Decreased
[2021-10-06] MEDS: BRIMONIDINE 0.1% OPH SOLN 5 ML BOTTLE BOTH EYES SCH (08:24)
[2021-10-06] MEDS: RIFAXIMIN 550 MG TABLET PO SCH (08:24)
[2021-10-06] MEDS: MENTHOL/ZINC OXIDE OINT 71 GM JAR TOP SCH (08:24)
[2021-10-06] MEDS: FAMOTIDINE 20 MG/2 ML VIAL IV SCH (08:24)
[2021-10-06] MEDS: POLYETHYLENE GLYCOL POWDER 17 GM PACK PO SCH (08:24)
[2021-10-06] MEDS ORDERED: metroNIDAZOLE INJ 500 MG/100 ML PREMIX IV SCH (08:30)
[2021-10-06 13:14] VITALS: BP 144/74
[2021-10-06] MEDS ORDERED: LACTULOSE 20 GM/30 ML UDCUP PO SCH (14:00)
== END 2021-10-06 15:05 | DRG 441 ==
LOC: EDUNIT# → EDBD → N.ED 22:35 → SUATTDRO 09-27 02:37 → N.EDINP 09-27 02:37 → N.3E 09-27 15:19 → N.CC 09-27 18:54
PROVIDERS: ADMIT Internal Medicine; ATTEND Family Medicine

== ENCOUNTER 2021-10-19 14:31 | Inpatient (IN) ==
[2021-10-19] MEDS ORDERED: SODIUM CHLORIDE 0.9% 1,000 ML IV STA ×2 (15:34→17:15)
[2021-10-19] MEDS ORDERED: SODIUM CHLORIDE 0.9% 500 ML IV STA (15:46)
[2021-10-19 15:49] LABS: Basophils % 0.1 % (0.0-0.8); Eosinophils % 0.3 % (0.00-10.9); Immature Granulocytes % 1.2 %; Immature Granulocytes Absolute 0.14 #; Lymphocytes % 25.2 % (21.3-54.2); Mean Corpuscular HGB Conc 29.3 GM/DL (32-36); Mean Corpuscular Volume 94.8 FL (87-102); Mean Platelet Volume 12.9 FL (9.6-12.0); Monocytes # 2.3 10*3/uL (0.11-0.8); Monocytes % 19.3 % (1.7-12.7); NRBC # 0.11 10*3/uL; Neutrophils % 53.9 % (38.7-73.9); Platelet Count 101 T/CUMM (130-400); Red Blood Count 1.73 MC/CUMM (3.8-5.5); Red Cell Distribution Width 26.5 % (9.3-17.3)
[2021-10-19 15:51] LABS: Hematocrit 16.4 VOL% (35.7-47.0); Hemoglobin 4.8 GM/DL (12.0-16.0)
[2021-10-19] MEDS ORDERED: SODIUM CHLORIDE 0.9% 1,000 ML IV PRN ×2 (15:51→21:01)
[2021-10-19 15:58] LABS: INR 1.4; PT Patient Result 15.5 SECS (10.1-12.1); Partial Thromboplastin Time 32.4 SECS (23.7-32.9)
[2021-10-19 16:07] LABS: Albumin 1.1 G/DL (3.4-5.0); Bilirubin,Total 1.6 MG/DL (0.20-1.00); Calcium 8.6 MG/DL (8.5-10.1); Osmolality,Calculated 284.7 MOS/KG (273-304); Potassium 4.5 MMOL/L (3.5-5.1); Total Protein 5.2 G/DL (6.4-8.2)
[2021-10-19 16:54] LABS: Lymphocytes 20 % (20-55); Total Cells Counted 100
[2021-10-19 16:55] LABS: Target Cells Few
[2021-10-19] MEDS ORDERED: hydrALAZINE 20 MG/1 ML VIAL IV PRN (16:55)
[2021-10-19] MEDS ORDERED: ALBUTEROL 2.5 MG/3 ML NEB RESP TX PRN (16:55)
[2021-10-19] MEDS ORDERED: ACETAMINOPHEN 325 MG TABLET PO PRN (16:55)
[2021-10-19] MEDS ORDERED: NOREPINEPHRINE 8 MG in SODIUM CHLORIDE 0.9% 242 ML IV PRN (16:55)
[2021-10-19] MEDS ORDERED: NOREPINEPHRINE 4 MG/4 ML VIAL IV ONE (17:44)
[2021-10-19] MEDS ORDERED: OCTREOTIDE 100 MCG/ML SYRINGE IV STA (17:46)
[2021-10-19] MEDS ORDERED: PANTOPRAZOLE 40 MG VIAL IV STA (17:47)
[2021-10-19] MEDS ORDERED: PANTOPRAZOLE INJ 200 MG in SODIUM CHLORIDE 0.9% 250 ML IV SCH (18:00)
[2021-10-19] MEDS: OCTREOTIDE 500 MCG in SODIUM CHLORIDE 0.9% 100 ML IV SCH (18:25)
[2021-10-19] MEDS: ALBUTEROL/IPRATROPIUM 3 ML NEB RESP TX SCH (19:24)
[2021-10-19] MEDS: LACTULOSE 20 GM/30 ML UDCUP PO SCH (19:39)
[2021-10-19] MEDS: RIFAXIMIN 550 MG TABLET PO SCH (20:44)
[2021-10-19] MEDS ORDERED: CALCIUM GLUCONATE RIDER 1,000 MG/50 ML PREMIX IV ONE (23:30)
[2021-10-19 23:35] LABS: Arterial Base Excess iSTAT -11 MMOL/L (-2.5-2.5); Arterial Bicarbonate iSTAT 12.9 MMOL/L (20-26); Arterial O2 Saturation iSTAT 92 % (95-100); Arterial PCO2 iSTAT 23 MM HG (35-48); Arterial PO2 iSTAT 65 MM HG (80-95); Arterial Total CO2 iSTAT 14 MMO/L (23-27); Arterial pH iSTAT 7.357 (7.35-7.45)
[2021-10-19] MEDS ORDERED: SODIUM BICARBONATE 50 MEQ/50 ML VIAL IV ONE ×2 (23:38)
[2021-10-19] MEDS: VASOPRESSIN 100 UNITS in SODIUM CHLORIDE 0.9% 95 ML IV SCH (23:48)
[2021-10-20] MEDS ORDERED: NOREPINEPHRINE 16 MG in SODIUM CHLORIDE 0.9% 234 ML IV PRN
[2021-10-20] MEDS ORDERED: PHENYLEPHRINE DRIP 0 MG/0 ML PREMIX IV ONE (00:02)
[2021-10-20] MEDS: ONDANSETRON 4 MG/2 ML VIAL IV PRN ×2 (00:06→08:15)
[2021-10-20] MEDS ORDERED: SODIUM BICARBONATE 50 MEQ/50 ML VIAL IV ONE ×5 (00:30→16:49)
[2021-10-20] MEDS: LACTULOSE 20 GM/30 ML UDCUP PO SCH ×3 (01:26→16:10)
[2021-10-20] MEDS: ALBUTEROL/IPRATROPIUM 3 ML NEB RESP TX SCH ×4 (01:51→19:07)
[2021-10-20] MEDS: OCTREOTIDE 500 MCG in SODIUM CHLORIDE 0.9% 100 ML IV SCH ×2 (02:53→03:21)
[2021-10-20 05:28] LABS: Basophils % 0.1 % (0.0-0.8); Hematocrit 22.6 VOL% (35.7-47.0); Hemoglobin 7.4 GM/DL (12.0-16.0); Immature Granulocytes % 1.5 %; Immature Granulocytes Absolute 0.14 #; Lymphocytes # 1.4 10*3/uL (1.4-4.0); Lymphocytes % 15.2 % (21.3-54.2); Mean Corpuscular HGB Conc 32.7 GM/DL (32-36); Mean Platelet Volume 12.2 FL (9.6-12.0); Monocytes # 1.3 10*3/uL (0.11-0.8); Monocytes % 14.3 % (1.7-12.7); NRBC # 0.17 10*3/uL; Neutrophils % 68.9 % (38.7-73.9); Platelet Count 65 T/CUMM (130-400); Red Blood Count 2.43 MC/CUMM (3.8-5.5); Red Cell Distribution Width 16.4 % (9.3-17.3); White Blood Count 9.1 T/CUMM (4-12)
[2021-10-20 05:48] LABS: Platelet Estimate Decreased
[2021-10-20 05:58] LABS: Albumin 1.4 G/DL (3.4-5.0); Bilirubin,Total 3.3 MG/DL (0.20-1.00); Calcium 8.3 MG/DL (8.5-10.1); Osmolality,Calculated 289.3 MOS/KG (273-304); Potassium 5.1 MMOL/L (3.5-5.1); Total Protein 4.6 G/DL (6.4-8.2)
[2021-10-20 06:40] LABS: INR 1.8; PT Patient Result 19.1 SECS (10.1-12.1)
[2021-10-20] MEDS: VASOPRESSIN 100 UNITS in SODIUM CHLORIDE 0.9% 95 ML IV SCH ×2 (08:11→16:15)
[2021-10-20] MEDS ORDERED: DEXTROSE 50% 25 GM/50 ML SYRINGE IV ONE ×2 (08:25→08:30)
[2021-10-20] MEDS ORDERED: LEVOFLOXACIN INJ 750 MG/150 ML PREMIX IV ONE (08:35)
[2021-10-20] MEDS ORDERED: SODIUM CHLORIDE 0.9% 1,000 ML IV PRN (08:53)
[2021-10-20] MEDS ORDERED: DEXTROSE 5% NACL 0.45% 1,000 ML IV SCH (09:00)
[2021-10-20] MEDS ORDERED: LIDOCAINE 2% 5 ML VIAL ONE ×2 (09:23→14:50)
[2021-10-20] MEDS ORDERED: propofoL 200 MG/20 ML VIAL IV ONE (09:23)
[2021-10-20] MEDS ORDERED: PHENYLEPHRINE 1 MG/10 ML SYRINGE IV ONE (09:23)
[2021-10-20] MEDS ORDERED: ETOMIDATE 40 MG/20 ML VIAL IV ONE ×2 (09:24→14:50)
[2021-10-20 09:41] LABS: Arterial Base Excess iSTAT -16 MMOL/L (-2.5-2.5); Arterial Bicarbonate iSTAT 9.8 MMOL/L (20-26); Arterial O2 Saturation iSTAT 97 % (95-100); Arterial PCO2 iSTAT 21 MM HG (35-48); Arterial PO2 iSTAT 99 MM HG (80-95); Arterial Total CO2 iSTAT 10 MMO/L (23-27); Arterial pH iSTAT 7.282 (7.35-7.45)
[2021-10-20] MEDS: BRIMONIDINE 0.1% OPH SOLN 5 ML BOTTLE BOTH EYES SCH ×2 (09:41→20:36)
[2021-10-20] MEDS: RIFAXIMIN 550 MG TABLET PO SCH ×2 (09:41→20:36)
[2021-10-20 09:53] LABS: Hemoglobin 4.6 GM/DL (12.0-16.0)
[2021-10-20] MEDS ORDERED: HEPARIN/NACL 0.9% 2 UNITS/ML 6,000 UNIT/3,000 ML BAG IV ONE (10:59)
[2021-10-20] MEDS ORDERED: CALCIUM CHLORIDE 1,000 MG/10 ML VIAL IV ONE (11:35)
[2021-10-20] MEDS ORDERED: ALBUMIN 5% 0 GM/0 ML VIAL IV ONE (11:35)
[2021-10-20] MEDS ORDERED: LACTATED RINGERS 1,000 ML IV SCH (12:00)
[2021-10-20 12:51] LABS: ABG Base Excess -5.8 MMOL/L (-2.5-2.5); ABG HCO3 19.6 MMOL/L (20-26); ABG Oxygen Saturation 99.9 % (95-100); ABG PCO2 29.5 MM HG (35-48); ABG PH 7.403 (7.35-7.45); ABG TCO2 17.8 MMOL/L (23-27); Glucose Heart Surgery 114 MG/DL (74-106); Ionized Calcium Arterial 1.21 MMOL/L (1.21-1.46); PCO2 Patient Temp Arterial 29.5 MMHG; PH Patient Temp Arterial 7.403; Patient Temperature 37 CELCIUS; Potassium Heart/CVR 4.8 MMOL/L (3.5-5.1); Sodium Heart/CVR 144 MMOL/L (135-145)
[2021-10-20 12:54] LABS: Hemoglobin Heart Surgery 5.4 G/DL (12.0-16.0)
[2021-10-20] MEDS ORDERED: MIDAZOLAM 10 MG/2 ML VIAL ONE (14:49)
[2021-10-20] MEDS ORDERED: ROCURONIUM 50 MG/5 ML VIAL IV ONE (14:50)
[2021-10-20] MEDS ORDERED: NITROGLYCERIN DRIP 50 MG/250 ML BOTTLE IV ONE (15:04)
[2021-10-20] MEDS ORDERED: SEVOFLURANE 1 UNIT/15 MINUTE INH ONE (15:28)
[2021-10-20] MEDS: SODIUM BICARB INJ 150 MEQ in DEXTROSE 5% 1,000 ML IV SCH (15:40)
[2021-10-20] MEDS ORDERED: ZINC OXIDE PASTE 113 GM TUBE TOP PRN (16:16)
[2021-10-20 16:21] LABS: Hematocrit 31.2 VOL% (35.7-47.0); Hemoglobin 10.1 GM/DL (12.0-16.0)
[2021-10-20 16:24] LABS: ABG Base Excess -7.1 MMOL/L (-2.5-2.5); ABG HCO3 18.6 MMOL/L (20-26); ABG Oxygen Saturation 96.4 % (95-100); ABG PCO2 38.5 MM HG (35-48); ABG PH 7.298 (7.35-7.45); ABG PO2 92.4 MM HG (80-95); ABG TCO2 16.9 MMOL/L (23-27)
[2021-10-20 16:40] LABS: Calcium 8.5 MG/DL (8.5-10.1)
[2021-10-20] MEDS ORDERED: MIDAZOLAM 100 MG in SODIUM CHLORIDE 0.9% 80 ML IV PRN ×2 (16:46→16:51)
[2021-10-20] MEDS ORDERED: MIDAZOLAM 2 MG/2 ML VIAL ONE (16:47)
[2021-10-20] MEDS ORDERED: CALCIUM GLUCONATE RIDER 1,000 MG/50 ML PREMIX IV ONE (16:50)
[2021-10-20] MEDS ORDERED: MIDAZOLAM 2 MG/2 ML VIAL IV ONE (16:52)
[2021-10-20] MEDS ORDERED: HEPARIN 10,000 UNIT/10 ML VIAL IV SCH (19:00)
[2021-10-20] MEDS: PANTOPRAZOLE 40 MG VIAL IV SCH (20:35)
[2021-10-20] MEDS: TRAVOPROST 0.004% OPH SOLN 2.5 ML BOTTLE BOTH EYES SCH (20:36)
[2021-10-20 21:01] LABS: Basophils % 0.3 % (0.0-0.8); Hematocrit 32.3 VOL% (35.7-47.0); Hemoglobin 10.5 GM/DL (12.0-16.0); Immature Granulocytes % 1.5 %; Immature Granulocytes Absolute 0.17 #; Lymphocytes # 1.7 10*3/uL (1.4-4.0); Lymphocytes % 14.8 % (21.3-54.2); Mean Corpuscular HGB Conc 32.5 GM/DL (32-36); Mean Corpuscular Volume 83.7 FL (87-102); Mean Platelet Volume 10.8 FL (9.6-12.0); Monocytes # 1.6 10*3/uL (0.11-0.8); Monocytes % 14.2 % (1.7-12.7); NRBC # 0.76 10*3/uL; Neutrophils % 69.2 % (38.7-73.9); Platelet Count 86 T/CUMM (130-400); Red Blood Count 3.86 MC/CUMM (3.8-5.5); Red Cell Distribution Width 21.3 % (9.3-17.3); White Blood Count 11.2 T/CUMM (4-12)
[2021-10-20 21:23] LABS: Platelet Estimate Decreased
[2021-10-21] MEDS: ALBUTEROL/IPRATROPIUM 3 ML NEB RESP TX SCH ×4 (00:21→18:55)
[2021-10-21] MEDS: VASOPRESSIN 100 UNITS in SODIUM CHLORIDE 0.9% 95 ML IV SCH ×3 (00:35→18:19)
[2021-10-21] MEDS: LACTULOSE 20 GM/30 ML UDCUP PO SCH ×3 (00:41→17:03)
[2021-10-21 00:56] LABS: Hematocrit 25.7 VOL% (35.7-47.0); Hemoglobin 8.5 GM/DL (12.0-16.0)
[2021-10-21 04:27] LABS: Basophils % 0.1 % (0.0-0.8); Hematocrit 23.8 VOL% (35.7-47.0); Hemoglobin 7.8 GM/DL (12.0-16.0); Immature Granulocytes % 0.8 %; Immature Granulocytes Absolute 0.06 #; Lymphocytes # 1.2 10*3/uL (1.4-4.0); Lymphocytes % 16.4 % (21.3-54.2); Mean Corpuscular HGB Conc 32.8 GM/DL (32-36); Mean Corpuscular Volume 83.8 FL (87-102); Mean Platelet Volume 11.3 FL (9.6-12.0); Monocytes # 1.2 10*3/uL (0.11-0.8); Monocytes % 16.3 % (1.7-12.7); NRBC # 0.48 10*3/uL; Neutrophils % 66.4 % (38.7-73.9); Platelet Count 56 T/CUMM (130-400); Red Blood Count 2.84 MC/CUMM (3.8-5.5); Red Cell Distribution Width 21.6 % (9.3-17.3); White Blood Count 7.1 T/CUMM (4-12)
[2021-10-21 04:34] LABS: ABG Base Excess -12.7 MMOL/L (-2.5-2.5); ABG HCO3 14.4 MMOL/L (20-26); ABG PCO2 24.2 MM HG (35-48); ABG PH 7.318 (7.35-7.45); ABG TCO2 11.7 MMOL/L (23-27)
[2021-10-21 04:45] LABS: PT Patient Result 21.4 SECS (10.1-12.1)
[2021-10-21 05:07] LABS: Albumin 1.4 G/DL (3.4-5.0); Bilirubin,Total 4.4 MG/DL (0.20-1.00); Calcium 8.1 MG/DL (8.5-10.1); Osmolality,Calculated 284.4 MOS/KG (273-304); Potassium 4.7 MMOL/L (3.5-5.1); Total Protein 4.2 G/DL (6.4-8.2)
[2021-10-21 05:50] LABS: Lymphocytes 14 % (20-55); Nucleated Red Blood Cells 11 /100 WBC (0-5); Total Cells Counted 100
[2021-10-21 05:51] LABS: Platelet Estimate Decreased
[2021-10-21] MEDS: PANTOPRAZOLE 40 MG VIAL IV SCH (08:47)
[2021-10-21] MEDS: RIFAXIMIN 550 MG TABLET PO SCH ×2 (08:50→21:11)
[2021-10-21] MEDS: BRIMONIDINE 0.1% OPH SOLN 5 ML BOTTLE BOTH EYES SCH ×2 (08:52→21:11)
[2021-10-21 08:55] LABS: Hematocrit 24.1 VOL% (35.7-47.0); Hemoglobin 7.8 GM/DL (12.0-16.0)
[2021-10-21 09:36] LABS: ABG Base Excess -11.7 MMOL/L (-2.5-2.5); ABG HCO3 15.1 MMOL/L (20-26); ABG Oxygen Saturation 96.5 % (95-100); ABG PCO2 26.3 MM HG (35-48); ABG PH 7.316 (7.35-7.45); ABG PO2 92.2 MM HG (80-95); ABG TCO2 12.7 MMOL/L (23-27)
[2021-10-21] MEDS: SODIUM BICARB INJ 150 MEQ in DEXTROSE 5% 1,000 ML IV SCH (11:26)
[2021-10-21] MEDS ORDERED: SODIUM BICARBONATE 50 MEQ/50 ML VIAL IV ONE (12:12)
[2021-10-21] MEDS ORDERED: SODIUM CHLORIDE 0.9% 1,000 ML IV PRN (12:12)
[2021-10-21 18:22] LABS: Hematocrit 28.2 VOL% (35.7-47.0); Hemoglobin 9.3 GM/DL (12.0-16.0)
[2021-10-21 18:35] LABS: Calcium 7.9 MG/DL (8.5-10.1); Osmolality,Calculated 283.7 MOS/KG (273-304); Potassium 4.7 MMOL/L (3.5-5.1)
[2021-10-21] MEDS: TRAVOPROST 0.004% OPH SOLN 2.5 ML BOTTLE BOTH EYES SCH (21:11)
[2021-10-21 21:21] LABS: ABG Base Excess -4.7 MMOL/L (-2.5-2.5); ABG HCO3 20.5 MMOL/L (20-26); ABG Oxygen Saturation 97.2 % (95-100); ABG PCO2 29.5 MM HG (35-48); ABG PH 7.414 (7.35-7.45); ABG PO2 91.3 MM HG (80-95); ABG TCO2 17.2 MMOL/L (23-27)
[2021-10-21 21:53] LABS: Albumin 1.4 G/DL (3.4-5.0); Bilirubin,Total 5.2 MG/DL (0.20-1.00); Osmolality,Calculated 290.3 MOS/KG (273-304); Potassium 4.6 MMOL/L (3.5-5.1); Total Protein 4.3 G/DL (6.4-8.2)
[2021-10-22] MEDS: ALBUTEROL/IPRATROPIUM 3 ML NEB RESP TX SCH ×4 (00:10→18:52)
[2021-10-22] MEDS: LACTULOSE 20 GM/30 ML UDCUP PO SCH ×3 (01:43→18:23)
[2021-10-22] MEDS: VASOPRESSIN 100 UNITS in SODIUM CHLORIDE 0.9% 95 ML IV SCH ×3 (03:33→19:36)
[2021-10-22 03:59] LABS: Basophils % 0.3 % (0.0-0.8); Eosinophils % 0.1 % (0.00-10.9); Hematocrit 30.2 VOL% (35.7-47.0); Hemoglobin 10.4 GM/DL (12.0-16.0); Immature Granulocytes % 1.5 %; Immature Granulocytes Absolute 0.17 #; Lymphocytes # 0.9 10*3/uL (1.4-4.0); Lymphocytes % 8.6 % (21.3-54.2); Mean Corpuscular HGB Conc 34.4 GM/DL (32-36); Monocytes # 1.4 10*3/uL (0.11-0.8); Monocytes % 12.5 % (1.7-12.7); NRBC # 2.33 10*3/uL; Platelet Count 79 T/CUMM (130-400); Red Blood Count 3.73 MC/CUMM (3.8-5.5); Red Cell Distribution Width 20.8 % (9.3-17.3)
[2021-10-22 04:07] LABS: ABG Base Excess -2.5 MMOL/L (-2.5-2.5); ABG HCO3 22.3 MMOL/L (20-26); ABG Oxygen Saturation 96.5 % (95-100); ABG PCO2 28.2 MM HG (35-48); ABG PH 7.464 (7.35-7.45); ABG PO2 84.5 MM HG (80-95); ABG TCO2 18.3 MMOL/L (23-27)
[2021-10-22 04:10] LABS: INR 2.4; PT Patient Result 25.1 SECS (10.1-12.1); Partial Thromboplastin Time 39.5 SECS (23.7-32.9)
[2021-10-22 04:22] LABS: Calcium 7.9 MG/DL (8.5-10.1); Lymphocytes 12 % (20-55); Nucleated Red Blood Cells 29 /100 WBC (0-5); Osmolality,Calculated 288.5 MOS/KG (273-304); Platelet Estimate Decreased; Potassium 4.9 MMOL/L (3.5-5.1); Total Cells Counted 100
[2021-10-22 05:09] LABS: Albumin 1.4 G/DL (3.4-5.0); Bilirubin,Direct 4.01 MG/DL (0.0-0.20); Bilirubin,Indirect 1.7 MG/DL (0.0-1.0); Bilirubin,Total 5.7 MG/DL (0.20-1.00); Total Protein 4.9 G/DL (6.4-8.2)
[2021-10-22 07:20] LABS: Hepatitis B Core IgM Quant 0.17 Index; Hepatitis B Surface Ag Quant < 0.10 Index; Hepatitis B Surface Ag Result Non-Reactive (NonReactive)
[2021-10-22] MEDS ORDERED: NOREPINEPHRINE 8 MG in SODIUM CHLORIDE 0.9% 242 ML IV PRN (07:55)
[2021-10-22] MEDS: DEXTROSE 5% NACL 0.45% 1,000 ML IV SCH (08:07)
[2021-10-22] MEDS: LEVOFLOXACIN INJ 500 MG/100 ML PREMIX IV SCH (08:08)
[2021-10-22] MEDS: RIFAXIMIN 550 MG TABLET PO SCH ×2 (08:08→20:26)
[2021-10-22] MEDS: BRIMONIDINE 0.1% OPH SOLN 5 ML BOTTLE BOTH EYES SCH ×2 (08:09→20:26)
[2021-10-22 08:57] LABS: Hepatitis C Virus Ab Quant 10.21 Index
[2021-10-22] MEDS: HYDROCORTISONE 100 MG VIAL IV SCH ×2 (10:28→18:35)
[2021-10-22] MEDS ORDERED: GLUCAGON 1 MG VIAL IM PRN (13:19)
[2021-10-22 18:46] LABS: Hematocrit 31.4 VOL% (35.7-47.0); Hemoglobin 10.6 GM/DL (12.0-16.0)
[2021-10-22 19:02] LABS: Calcium 7.2 MG/DL (8.5-10.1); Osmolality,Calculated 284.7 MOS/KG (273-304); Potassium 5.9 MMOL/L (3.5-5.1)
[2021-10-22] MEDS: DEXTROSE 10% 250 ML BAG IV PRN (19:32)
[2021-10-22] MEDS: TRAVOPROST 0.004% OPH SOLN 2.5 ML BOTTLE BOTH EYES SCH (20:26)
[2021-10-23] MEDS: ALBUTEROL/IPRATROPIUM 3 ML NEB RESP TX SCH ×4 (00:44→19:00)
[2021-10-23] MEDS: LACTULOSE 20 GM/30 ML UDCUP PO SCH ×3 (00:50→17:49)
[2021-10-23] MEDS: HYDROCORTISONE 100 MG VIAL IV SCH ×2 (03:17→14:52)
[2021-10-23] MEDS: DEXTROSE 5% NACL 0.45% 1,000 ML IV SCH (03:17)
[2021-10-23] MEDS: VASOPRESSIN 100 UNITS in SODIUM CHLORIDE 0.9% 95 ML IV SCH ×3 (03:22→20:25)
[2021-10-23 04:27] LABS: ABG Base Excess -7.4 MMOL/L (-2.5-2.5); ABG HCO3 18.5 MMOL/L (20-26); ABG Oxygen Saturation 97.4 % (95-100); ABG PCO2 25.3 MM HG (35-48); ABG PH 7.407 (7.35-7.45); ABG TCO2 14.2 MMOL/L (23-27); Basophils # 0.1 10*3/uL (0.0-0.2); Basophils % 0.6 % (0.0-0.8); Eosinophils # 0.1 10*3/uL (0.0-0.87); Eosinophils % 0.7 % (0.00-10.9); Hematocrit 33.5 VOL% (35.7-47.0); Hemoglobin 11.1 GM/DL (12.0-16.0); Immature Granulocytes % 5.1 %; Immature Granulocytes Absolute 0.71 #; Lymphocytes # 1.3 10*3/uL (1.4-4.0); Lymphocytes % 9.1 % (21.3-54.2); Mean Corpuscular HGB Conc 33.1 GM/DL (32-36); Mean Corpuscular Volume 84.4 FL (87-102); Mean Platelet Volume 10.7 FL (9.6-12.0); Monocytes # 1.8 10*3/uL (0.11-0.8); Monocytes % 13.2 % (1.7-12.7); NRBC # 3.91 10*3/uL; Neutrophils % 71.3 % (38.7-73.9); Red Blood Count 3.97 MC/CUMM (3.8-5.5); Red Cell Distribution Width 22.4 % (9.3-17.3); White Blood Count 13.9 T/CUMM (4-12)
[2021-10-23 04:33] LABS: Platelet Count 96 T/CUMM (130-400)
[2021-10-23 04:45] LABS: Band Neutrophils 1 % (0-10); Lymphocytes 7 % (20-55); Nucleated Red Blood Cells 47 /100 WBC (0-5); Platelet Estimate Decreased; Total Cells Counted 100
[2021-10-23 04:52] LABS: Blood Urea Nitrogen 49 MG/DL (7-18); Calcium 7.2 MG/DL (8.5-10.1); Carbon Dioxide 19 MMOL/L (21-32); Chloride 98 MMOL/L (98-107); Glucose 101 MG/DL (74-106); Osmolality,Calculated 285.8 MOS/KG (273-304); Phosphorous > 9.0 MG/DL (2.5-4.9); Potassium 5.9 MMOL/L (3.5-5.1); Sodium 137 MMOL/L (136-145)
[2021-10-23 05:16] LABS: Albumin 1.3 G/DL (3.4-5.0); Bilirubin,Total 6.9 MG/DL (0.20-1.00); Calcium 7.4 MG/DL (8.5-10.1); Total Protein 4.6 G/DL (6.4-8.2)
[2021-10-23] MEDS ORDERED: MIDAZOLAM 100 MG in SODIUM CHLORIDE 0.9% 80 ML IV PRN (09:52)
[2021-10-23] MEDS: BRIMONIDINE 0.1% OPH SOLN 5 ML BOTTLE BOTH EYES SCH ×2 (10:43→20:04)
[2021-10-23] MEDS: RIFAXIMIN 550 MG TABLET PO SCH ×2 (10:43→20:34)
[2021-10-23] MEDS: NOREPINEPHRINE 16 MG in SODIUM CHLORIDE 0.9% 234 ML IV PRN (12:15)
[2021-10-23 18:29] VITALS: BP 131/56
[2021-10-23] MEDS: TRAVOPROST 0.004% OPH SOLN 2.5 ML BOTTLE BOTH EYES SCH (20:04)
[2021-10-24] MEDS: HYDROCORTISONE 100 MG VIAL IV SCH ×2 (02:02→14:15)
[2021-10-24] MEDS: LACTULOSE 20 GM/30 ML UDCUP PO SCH ×3 (02:02→16:21)
[2021-10-24] MEDS: DEXTROSE 5% NACL 0.45% 1,000 ML IV SCH ×2 (03:39→11:24)
[2021-10-24 04:27] LABS: ABG Base Excess -16.3 MMOL/L (-2.5-2.5); ABG HCO3 12.2 MMOL/L (20-26); ABG Oxygen Saturation 97.2 % (95-100); ABG PH 7.273 (7.35-7.45); ABG TCO2 8.5 MMOL/L (23-27)
[2021-10-24 04:34] LABS: Basophils # 0.1 10*3/uL (0.0-0.2); Basophils % 0.8 % (0.0-0.8); Hematocrit 34.4 VOL% (35.7-47.0); Hemoglobin 10.8 GM/DL (12.0-16.0); Immature Granulocytes Absolute 0.92 #; Lymphocytes # 0.9 10*3/uL (1.4-4.0); Lymphocytes % 6.1 % (21.3-54.2); Mean Corpuscular HGB Conc 31.4 GM/DL (32-36); Mean Corpuscular Volume 90.1 FL (87-102); Mean Platelet Volume 11.1 FL (9.6-12.0); Monocytes # 1.9 10*3/uL (0.11-0.8); Monocytes % 12.2 % (1.7-12.7); NRBC # 4.98 10*3/uL; Neutrophils % 74.9 % (38.7-73.9); Platelet Count 70 T/CUMM (130-400); Red Blood Count 3.82 MC/CUMM (3.8-5.5); Red Cell Distribution Width 23.6 % (9.3-17.3); White Blood Count 15.4 T/CUMM (4-12)
[2021-10-24 04:46] LABS: Calcium 8.1 MG/DL (8.5-10.1); Osmolality,Calculated 281.8 MOS/KG (273-304); Potassium 5.1 MMOL/L (3.5-5.1)
[2021-10-24 04:56] LABS: Band Neutrophils 3 % (0-10); Lymphocytes 7 % (20-55); Nucleated Red Blood Cells 53 /100 WBC (0-5); Platelet Estimate Decreased; Total Cells Counted 100
[2021-10-24 04:57] LABS: Macrocytosis Slight; Polychromasia Slight
[2021-10-24] MEDS: VASOPRESSIN 100 UNITS in SODIUM CHLORIDE 0.9% 95 ML IV SCH ×3 (05:34→22:20)
[2021-10-24] MEDS: ALBUTEROL/IPRATROPIUM 3 ML NEB RESP TX SCH ×5 (07:30→23:58)
[2021-10-24] MEDS: LEVOFLOXACIN INJ 500 MG/100 ML PREMIX IV SCH (08:27)
[2021-10-24] MEDS: BRIMONIDINE 0.1% OPH SOLN 5 ML BOTTLE BOTH EYES SCH ×2 (08:27→20:46)
[2021-10-24] MEDS ORDERED: SODIUM BICARBONATE 50 MEQ/50 ML VIAL IV ONE ×2 (08:27→14:59)
[2021-10-24] MEDS: SODIUM BICARBONATE 650 MG TABLET PER TUBE SCH ×3 (08:28→20:45)
[2021-10-24] MEDS: RIFAXIMIN 550 MG TABLET PO SCH ×2 (08:28→20:46)
[2021-10-24 14:26] LABS: ABG Base Excess -16.9 MMOL/L (-2.5-2.5); ABG HCO3 11.8 MMOL/L (20-26); ABG Oxygen Saturation 97.8 % (95-100); ABG PCO2 20.4 MM HG (35-48); ABG PH 7.253 (7.35-7.45); ABG TCO2 8.2 MMOL/L (23-27)
[2021-10-24] MEDS: NOREPINEPHRINE 16 MG in SODIUM CHLORIDE 0.9% 234 ML IV PRN (14:38)
[2021-10-24] MEDS ORDERED: DEXTROSE 50% 25 GM/50 ML SYRINGE IV ONE (16:04)
[2021-10-24] MEDS: TRAVOPROST 0.004% OPH SOLN 2.5 ML BOTTLE BOTH EYES SCH (20:46)
[2021-10-25] MEDS: LACTULOSE 20 GM/30 ML UDCUP PO SCH ×3 (00:31→16:26)
[2021-10-25] MEDS ORDERED: DEXTROSE 50% 25 GM/50 ML SYRINGE IV ONE (01:07)
[2021-10-25] MEDS: HYDROCORTISONE 100 MG VIAL IV SCH ×2 (01:45→14:00)
[2021-10-25 03:17] LABS: ABG Base Excess -21.8 MMOL/L (-2.5-2.5); ABG HCO3 8.9 MMOL/L (20-26); ABG Oxygen Saturation 97.4 % (95-100); ABG TCO2 5.8 MMOL/L (23-27)
[2021-10-25] MEDS: DEXTROSE 5% NACL 0.45% 1,000 ML IV SCH (03:18)
[2021-10-25 03:21] LABS: ABG PCO2 17.9 MM HG (35-48); ABG PH 7.145 (7.35-7.45)
[2021-10-25] MEDS ORDERED: SODIUM BICARBONATE 50 MEQ/50 ML VIAL IV ONE ×3 (03:26→08:53)
[2021-10-25 03:43] LABS: Calcium 9.1 MG/DL (8.5-10.1); Osmolality,Calculated 281.8 MOS/KG (273-304); Potassium 5.2 MMOL/L (3.5-5.1)
[2021-10-25 03:50] LABS: Basophils # 0.1 10*3/uL (0.0-0.2); Basophils % 0.3 % (0.0-0.8); Eosinophils % 0.1 % (0.00-10.9); Hematocrit 36.1 VOL% (35.7-47.0); Hemoglobin 10.7 GM/DL (12.0-16.0); Immature Granulocytes % 9.4 %; Immature Granulocytes Absolute 2.22 #; Lymphocytes # 1.5 10*3/uL (1.4-4.0); Lymphocytes % 6.3 % (21.3-54.2); Mean Corpuscular HGB Conc 29.6 GM/DL (32-36); Mean Corpuscular Volume 95.5 FL (87-102); Mean Platelet Volume 10.6 FL (9.6-12.0); Monocytes # 3.8 10*3/uL (0.11-0.8); Monocytes % 16.3 % (1.7-12.7); NRBC # 7.04 10*3/uL; Neutrophils % 67.6 % (38.7-73.9); Platelet Count 67 T/CUMM (130-400); Red Blood Count 3.78 MC/CUMM (3.8-5.5); Red Cell Distribution Width 24.8 % (9.3-17.3); White Blood Count 23.5 T/CUMM (4-12)
[2021-10-25 04:01] LABS: Band Neutrophils 6 % (0-10); Lymphocytes 8 % (20-55); Metamyelocytes 1 %; Nucleated Red Blood Cells 32 /100 WBC (0-5); Total Cells Counted 100
[2021-10-25 04:02] LABS: Anisocytosis 1+; Macrocytosis 1+
[2021-10-25 04:03] LABS: Burr Cells Few; Platelet Estimate Decreased; Polychromasia Slight
[2021-10-25 04:04] LABS: Hypochromia Slight
[2021-10-25] MEDS: DEXTROSE 10% 250 ML BAG IV PRN ×2 (04:57→16:26)
[2021-10-25] MEDS: NOREPINEPHRINE 16 MG in SODIUM CHLORIDE 0.9% 234 ML IV PRN ×3 (05:13→15:02)
[2021-10-25] MEDS: VASOPRESSIN 100 UNITS in SODIUM CHLORIDE 0.9% 95 ML IV SCH ×3 (05:49→16:15)
[2021-10-25] MEDS: ALBUTEROL/IPRATROPIUM 3 ML NEB RESP TX SCH ×2 (07:58→13:28)
[2021-10-25] MEDS: SODIUM BICARBONATE 650 MG TABLET PER TUBE SCH ×2 (08:13→16:26)
[2021-10-25] MEDS: RIFAXIMIN 550 MG TABLET PO SCH (08:14)
[2021-10-25] MEDS: BRIMONIDINE 0.1% OPH SOLN 5 ML BOTTLE BOTH EYES SCH (08:14)
[2021-10-25] MEDS ORDERED: SODIUM BICARBONATE 50 MEQ/50 ML SYRINGE IV ONE (09:09)
== END 2021-10-25 17:55 | disposition expired | DRG 356 ==
LOC: SUATTDRO → EDUNIT# → EDBD → N.ED 14:31 → SUATTDRO 16:55 → N.EDINP 16:55 → N.CC 19:01 → N.CVR 10-23 18:26
PROVIDERS: ADMIT Internal Medicine; ATTEND Internal Medicine
PROC: IRAGMES (2021-10-20 11:35)